=== PATIENT | male | born 1980 | race Two or more races ===

== ENCOUNTER 2018-07-04 22:59 | Outpatient (CLI) | payer OTHER | END 2018-07-04 23:00 | disposition home or self-care (01) | LOC: LAB 22:59 | PROVIDERS: ATTEND Pathology Blood Banking & Transfusion Medicine | DX: Z01.89 Encounter for other specified special examinations (principal) | CPT/HCPCS: 36415 ==

== ENCOUNTER 2023-04-02 10:24 | Outpatient (CLI) | payer SELFPAY | END 2023-04-02 10:25 | disposition critical access hospital (66) | LOC: EMS 10:24 | DX: R10.9 Unspecified abdominal pain (principal) | CPT/HCPCS: A0425; A0429 ==

== ENCOUNTER 2023-04-02 11:09 | Observation (INO) | payer SELFPAY ==
[2023-04-02] MEDS ORDERED: SODIUM CHLORIDE 0.9% 1,000 ML IV STA (11:41)
[2023-04-02] MEDS ORDERED: ONDANSETRON 4 MG/2 ML VIAL IVP STA ×2 (11:41→13:14)
[2023-04-02] MEDS ORDERED: THIAMINE INJ 100 MG, FOLIC ACID INJ 1 MG in SODIUM CHLORIDE 0.9% 1,000 ML IV STA (11:42)
[2023-04-02] MEDS ORDERED: PANTOPRAZOLE 40 MG VIAL IVP STA (11:42)
[2023-04-02 11:58] LABS: BASOPHILS # (AUTO) 0.1 10^3/uL (0.0-0.1); BASOPHILS % (AUTO) 1.4 %; EOSINOPHILS % (AUTO) 0.3 %; HCT - HEMATOCRIT 29.6 % (42.0-52.0); HGB - HEMOGLOBIN 8.7 g/dL (14.0-18.0); LYMPHOCYTES # (AUTO) 1.4 10^3/uL (1.5-3.5); LYMPHOCYTES % (AUTO) 17.6 %; MEAN CORPUSCULAR HEMOGLOBIN 18.8 pg (27.0-31.0); MEAN CORPUSCULAR HGB CONC 29.4 g/dL (32.0-36.0); MEAN CORPUSCULAR VOLUME 64.1 fL (80.0-94.0); MEAN PLATELET VOLUME 9.3 fL (7.4-11.4); MONOCYTES % (AUTO) 13.1 %; NEUTROPHILS # (AUTO) 5.3 10^3/uL (1.5-6.6); NRBC ABSOLUTE COUNT (AUTO) 0.02 x10^3/uL; NUCLEATED RED BLOOD CELLS AUTO 0.3 /100WBC; PLT - PLATELET COUNT 277 10^3/uL (130-450); RED BLOOD COUNT 4.62 10^6/uL (4.70-6.10); RED CELL DISTRIBUTION WIDTH 21.1 % (12.0-15.0); WHITE BLOOD COUNT 7.9 x10^3/uL (4.8-10.8)
[2023-04-02 12:00] LABS: RBC MORPHOLOGY (MULTIPLE) 4+ ANISOCYTOSIS (NORMAL); SLIDE REVIEW? Indicated
--- NOTE | 2023-04-02 12:05 | ED Physician Documentation ---
History of Present Illness - Stated complaint Stated Complaint: ETOH, vomiting BRB - Chief complaint Chief Complaint: Abd Pain - Additonal information Additional information: 43-year-old male who is Martiniquais-speaking only presents to the emergency department for evaluation of abdominal pain, hematic emesis and alcohol abuse. He is requesting help to stop drinking. Patient reports that he has been binge drinking each night in order to sleep. If he does not drink he is unable to sleep. He does have a longstanding history of insomnia and depression. Reports some bright red bloody emesis. History is exceedingly difficult to obtain, even with the lathe set up person. Patient often does not answer questions as anticipated and thus not a reliable historian. Reports drinking prior to arrival but cannot quantify the time or amount. Patient denied black or bloody stools but did have a difficult time answering this question. I also tried to elicit any history of withdrawal or DTs and again the answer was not clear. Patient did present to the emergency department with an emesis bag that had bright red blood but small volume/quantity perhaps large "loogies." On presentation to the emergency department he is alert and well-appearing. He prefers to lay in the position on the right side. He is noted to be tachycardic sinus rhythm heart rate of 116. Blood pressure 137/71. Temperature is 37. No respiratory distress or hypoxia. Fitness Plan Coordinator used was #[id number]. Review of Systems Unable to obtain: Intoxicated, Other (language barrier) PD PAST MEDICAL HISTORY - Past Medical History Past Medical History: No Cardiovascular: None Endocrine/Autoimmune: None Psych: Depression, Anxiety Other Past Medical History: ETOH abuse, insomnia - Past Surgical History Past Surgical History: No - Present Medications Home Medications: Ambulatory Orders Medication Instructions Recorded Confirmed Hydrocodone/Acetaminophen [[place] 1 each PO Q6H PRN #25 tablet 02/10/16 5-325 Tablet] Ibuprofen [Motrin] 600 mg PO TID #30 tab 02/10/16 methocarbamoL [Robaxin] 500 mg PO Q6H PRN #30 tablet 02/10/16 - Allergies Allergies/Adverse Reactions: Allergies Allergy/AdvReac Type Severity Reaction Status Date / Time aspirin [From [place]] Allergy Rash Verified 04/02/23 11:20 citric acid Allergy Rash Verified 04/02/23 11:20 [From [place]] sodium bicarbonate Allergy Rash Verified 04/02/23 11:20 [From [place]] - Social History Does the pt smoke?: Yes Smoking Status: Current every day smoker Does the pt drink ETOH?: Yes Does the pt have substance abuse?: No PD ED PE NORMAL - General General: Alert and oriented X 3, No acute distress, Well developed/nourished - HEENT HEENT: Atraumatic - Neck Neck: Supple, no meningeal sign - Cardiac Cardiac: RRR (Sinus tachycardia on the monitor), No murmur, Strong equal pulses - Respiratory Respiratory: No respiratory distress, Clear bilaterally - Abdomen Abdomen: Normal bowel sounds, Soft, Non tender (I did not elicit any abdominal tenderness with exam.) - Rectal Rectal: Other (Chaperoned rectal exam revealed brown stool in vault. 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 2-12 intact Eye Opening: Spontaneous Motor: Obeys Commands Verbal: Oriented GCS Score: 15 Results - Vitals Vitals: Vital Signs - 24 hr 04/02/23 04/02/23 11:13 12:31 Temperature 37.0 C Heart Rate 116 H 110 H Respiratory 20 18 Rate Blood Pressure 137/71 H 139/61 H O2 Saturation 97 98 Oxygen O2 Source Room air - Labs Labs: Microbiology 04/02/23 12:14 Occult Blood - Final Stool Laboratory Tests 04/02/23 04/02/23 04/02/23 11:48 11:48 11:48 WBC 7.9 RBC 4.62 L Hgb 8.7 L Hct 29.6 L MCV 64.1 L MCH 18.8 L MCHC 29.4 L RDW 21.1 H Plt Count 277 MPV 9.3 Neut # (Auto) 5.3 Lymph # (Auto) 1.4 L [place] # (Auto) 1.0 Eos # (Auto) 0.0 Baso # (Auto) 0.1 Absolute Nucleated RBC 0.02 Nucleated RBC % 0.3 Manual Slide Review Indicated RBC Morph Micro Appear 4+ ANISOCYTOSIS PT INR Sodium 133 L Potassium 3.1 L Chloride 96 L Carbon Dioxide 22 Anion Gap 15.0 H BUN 5 L Creatinine 0.6 Estimated GFR (MDRD) 146 Glucose 182 H Calcium 8.9 Total Bilirubin 0.4 AST 142 H ALT 94 H Alkaline Phosphatase 139 H Ammonia Total Protein 8.0 Albumin 4.4 Globulin 3.6 Albumin/Globulin Ratio 1.2 Lipase 92 H Ethyl Alcohol 291.8 Blood Type O POSITIVE Antibody Screen NEGATIVE 04/02/23 04/02/23 11:48 11:56 WBC RBC Hgb Hct MCV MCH MCHC RDW Plt Count MPV Neut # (Auto) Lymph # (Auto) [place] # (Auto) Eos # (Auto) Baso # (Auto) Absolute Nucleated RBC Nucleated RBC % Manual Slide Review RBC Morph Micro Appear PT 11.7 INR 1.1 Sodium Potassium Chloride Carbon Dioxide Anion Gap BUN Creatinine Estimated GFR (MDRD) Glucose Calcium Total Bilirubin AST ALT Alkaline Phosphatase Ammonia 40.4 Total Protein Albumin Globulin Albumin/Globulin Ratio Lipase Ethyl Alcohol Blood Type Antibody Screen PD Medical Decision Making - ED course Complexity details: reviewed results, re-evaluated patient, d/w patient ED course: 43-year-old male who is Martiniquais-speaking only presents to the emergency department for evaluation of binge drinking and vomiting bright red blood. History was difficult to obtain secondary to language barrier as well as difficulty for the patient with the utility sales representative services. However patient reports that for about the last week he has been binge drinking. If he does not drink he is unable to sleep. He started having vomiting of bright red blood this morning. It does not sound as though he has had melena or hematochezia. Takes no prescribed medications. On presentation to the emergency department he was tachycardic with a heart rate of 116 but normotensive. No fevers. No abdominal pain was elicited. I did do a rectal exam which revealed brown blood in the vault however it was guaiac positive. I obtained initial CBC, PT/INR serum chemistry and an ammonia level. His blood alcohol level was 291. He does have a marked anemia with an initial hemoglobin of 8.7. Normal platelet count. No previous for comparison. INR was 1.1. He has some mild electrolyte derangement with sodium of 133 and a K of 3.1. I did give the patient a 40 meq dose of potassium orally. Anion gap is 15. Normal renal function. He does have transaminitis consistent with alcoholic hepatitis; AST 142 ALT 94. Alk phos is 139. Ammonia was not elevated. Bilirubin was normal. He had a lipase of 92. This is likely related to alcohol abuse. On exam no abdominal tenderness was elicited, therefore advanced imaging was deferred However given the marked anemia and reports of bright red blood there is concern for this gentleman to have an active upper GI bleed. I did administer the patient 1 L of normal saline as well as a liter of thiamine/folate given history of alcohol abuse. He also received Protonix IV. I briefly spoke on the phone with Dr. Finley the surgeon available and on-call. She agrees that the patient needs endoscopy and scoping. Subsequently I then spoke with the hospitalist Dr. Oakley who agrees to admit the patient. The patient does have a MELD score of 1.7. Giving him a low 2% risk of 3-month mortality. With IV fluids his heart rate is improved to 109. He remains normotensive. He was empirically given a single dose of phenobarbital for the riskof ETOH withdrawl though he presented with blood alcohol of 290. Patient had an initial CIWA score of 19 at 1300. He had previously been administered 30mg of phenobarbital. We will now administer 2 mg of Ativan. While admitted to the hospital the patient will need to be seen by social work for evaluation of alcohol abuse. He may benefit from detox or rehab following the hospitalization. I spoke with the patient using utility sales representative services #[id number] and the patient agrees to become inpatient for further evaluation and management of his alcohol abuse and upper GI bleeding. Departure - Departure Disposition: 66 [facility] DC/Xfer Clinical Impression: Upper GI bleeding, ETOH abuse, Abnormal LFTs (liver function tests) Anemia Qualifiers: Anemia type: unspecified type Qualified Code(s): D64.9 - Anemia, unspecified Forms: PCP List
[2023-04-02 12:13] LABS: INR 1.1 (0.8-1.2); PT - PROTHROMBIN TIME 11.7 secs (9.9-12.6)
[2023-04-02 12:17] LABS: ALBUMIN 4.4 g/dL (3.2-5.5); ALBUMIN/GLOBULIN RATIO 1.2 (1.0-2.2); BILIRUBIN,TOTAL 0.4 mg/dL (0.2-1.0); CALCIUM 8.9 mg/dL (8.5-10.3); CREATININE 0.6 mg/dL (0.6-1.3); ETOH - ETHANOL 291.8 mg/dL; POTASSIUM 3.1 mmol/L (3.5-4.5)
[2023-04-02] MEDS ORDERED: PHENobarbitaL 32.4 MG TABLET PO STA (12:36)
[2023-04-02] MEDS ORDERED: POTASSIUM CHLORIDE 20 MEQ TABLET PO STA (13:15)
[2023-04-02] MEDS ORDERED: LORazepam 2 MG/ML VIAL IVP STA (13:15)
--- NOTE | 2023-04-02 13:21 | CONSULTATION NOTE ---
Referring Provider Name of Referring Provider:: ED (Mane Duckworth) Consult Date: 04/02/23 Chief Complaint - Chief Complaint Chief Complaint: bloody sputum, possible hematemesis, anemia History of Present Illness - Admitted From Admitted From:: ED - History Obtained From Records Reviewed: yes (though limited) History obtained from: patient, chart, ED provider Exam Limitations: patient actively intoxicated, Polish speaking - History of Present Illness HPI Comment/Other: I spoke with the patient this afternoon with the assistance of a video farm laborer, #[id number]. The patient is resting comfortably, and awakens to voice. He does not answer questions appropriately. He states he has a little pain "all over" his abdomen. He denies nausea at this time. He states he has been vomiting blood. When asked how long this has been occurring, he says "for 9 months because I cannot sleep." When asked if he's been having bloody vomit or drinking alcohol for 9 months, he does not answer. When asked who the president is he does not answer. When asked what year it is, he states he is 44 years old. When asked what day it is he states it is Friday (it's Friday). The patient falls asleep frequently between questions and does appear intoxicated at the time of my interview. History - Past Medical History Cardiovascular: reports: None (unknown, patient unable to participate in questioning at this time) Endocrine/Autoimmune: reports: None Psych: reports: Depression, Anxiety Other Past Medical History: ETOH abuse, insomnia - Past Surgical History General: reports: Other (unable to obtain information due to intoxication) - Substance History Use: Uses substance without health or social issues: Alcohol Use Issues: Intoxication Meds/Allgy - Home Medications Home Medications: Ambulatory Orders Medication Instructions Recorded Confirmed Hydrocodone/Acetaminophen [[place] 1 each PO Q6H PRN #25 tablet 02/10/16 5-325 Tablet] Ibuprofen [Motrin] 600 mg PO TID #30 tab 02/10/16 methocarbamoL [Robaxin] 500 mg PO Q6H PRN #30 tablet 02/10/16 - Allergies Allergies/Adverse Reactions: Allergies Allergy/AdvReac Type Severity Reaction Status Date / Time aspirin [From [place]] Allergy Rash Verified 04/02/23 11:20 citric acid Allergy Rash Verified 04/02/23 11:20 [From [place]ime] sodium bicarbonate Allergy Rash Verified 04/02/23 11:20 [From [place]] Review of Systems - Constitutional Constitutional: reports: Other (unable to obtain due to intoxication) Exam - Vital Signs Reviewed Vital Signs: Yes Vital Signs: Vital Signs x48h Temp Pulse Resp BP Pulse Ox 04/02/23 12:31 110 H 18 139/61 H 98 04/02/23 11:13 37.0 C 116 H 20 137/71 H 97 - Physical Exam General Appearance: positive: Lethargic, Other (intoxicated) Eyes Bilateral: positive: PERRL, EOMI, No scleral icterus ENT: positive: No signs of dehydration Neck: positive: Trachea midline Respiratory: positive: No respiratory distress Cardiovascular: positive: Tachycardia Peripheral Pulses: positive: 2+ Abdomen: positive: Tenderness (mild, diffuse). negative: Guarding, Rebound Back: positive: Nml inspection Skin: positive: No rash Extremities: positive: Non-tender Neurologic/Psychiatric: positive: Other (confused/intoxicated) Conclusion and Plan - Lab Results Microbiology Results 04/02/23 12:14 Stool Occult Blood - Final Laboratory Results 04/02/23 11:56: Ammonia 40.4 04/02/23 11:48: PT 11.7, INR 1.1 04/02/23 11:48: Blood Type O POSITIVE, Antibody Screen NEGATIVE 04/02/23 11:48: Sodium 133 L, Potassium 3.1 L, Chloride 96 L, Carbon Dioxide 22, Anion Gap 15.0 H, BUN 5 L, Creatinine 0.6, Estimated GFR (MDRD) 146, Glucose 182 H, Calcium 8.9, Total Bilirubin 0.4, AST 142 H, ALT 94 H, Alkaline Phosphatase 139 H, Total Protein 8.0, Albumin 4.4, Globulin 3.6, Albumin/Globulin Ratio 1.2, Lipase 92 H, Ethyl Alcohol 291.8 04/02/23 11:48: WBC 7.9, RBC 4.62 L, Hgb 8.7 L, Hct 29.6 L, MCV 64.1 L, MCH 18.8 L, MCHC 29.4 L, RDW 21.1 H, Plt Count 277, MPV 9.3, Neut # (Auto) 5.3, Lymph # (Auto) 1.4 L, [place] # (Auto) 1.0, Eos # (Auto) 0.0, Baso # (Auto) 0.1, Absolute Nucleated RBC 0.02, Nucleated RBC % 0.3, Manual Slide Review Indicated, RBC Morph Micro Appear 4+ ANISOCYTOSIS - Consultation Note Consultation Note: This is a 43 y/o M with: acute alcohol intoxication and suspected alcohol use disorder - patient is currently intoxicated - states he's been drinking heavily for 9 months because he cannot sleep - as per primary team possible hematemesis, anemia, guiac positive stool - guiac + stool in ED - bloody sputum in emesis bag on arrival per ED provider - patient is anemic - possible upper GI source for anemia (multiple risk factors in chart including alcohol use disorder, NSAID use, epigastric abdominal pain, and above) - I would consider upper endoscopy while inpatient. No prior labs or imaging are available to rule in/out possible varices. Patient will need to be lucid and not confused such that the surgery team can have a discussion regarding his history and to obtain consent for any indicated procedure. -The patient is mildly tachycardic and hypertensive. Likely due to intoxication/withdrawal. - No emesis since arrival. He does not appear to be in extremis due to his anemia at this time. Will follow hgb to assess for active bleeding. If hgb drops rapidly, would consider emergent endoscopy which would be high risk in an actively intoxicated/withdrawing patient, and would likely require endotracheal intubation for airway protection. - Records indicate the patient takes IBU at home. I would recommend stopping all NSAID medications with the spectre of upper gi bleeding. I would recommend tobacco and alcohol cessation. I would recommend PPI (IV or PO) daily. - Please keep patient NPO until we are able to assess patient further Plan to reassess patient in AM to obtain further history and assess for possible endoscopy. Thank you for consulting the surgery service in the care of this patient. We will continue to follow closely.
[2023-04-02] MEDS ORDERED: ONDANSETRON 4 MG/2 ML VIAL IVP PRN (13:57)
[2023-04-02] MEDS ORDERED: PROCHLORPERAZINE 10 MG/2 ML VIAL IVP PRN (13:57)
[2023-04-02] MEDS ORDERED: SODIUM CHLORIDE FLUSH 0.9% 10 ML SYRINGE IVP PRN (13:57)
[2023-04-02] MEDS ORDERED: SODIUM CHLORIDE 0.9% 1,000 ML IV SCH (14:00)
[2023-04-02 14:10] LABS: BILIRUBIN,URINE NEGATIVE (NEGATIVE); GLUCOSE, URINE (UA) NEGATIVE (NEGATIVE); KETONES,URINE (UA) NEGATIVE (NEGATIVE); LEUKOCYTE ESTERASE, URINE NEGATIVE (NEGATIVE); NITRITE,URINE NEGATIVE (NEGATIVE); OCCULT BLOOD,URINE TRACE-LYSE (NEGATIVE); PROTEIN,URINE NEGATIVE (NEGATIVE); UROBILINOGEN,URINE 0.2 (NORMAL) E.U./dL (NORMAL)
[2023-04-02 14:15] LABS: CLARITY,URINE CLEAR (CLEAR)
[2023-04-02] MEDS ORDERED: LORazepam 2 MG/ML VIAL IVP PRN (14:19)
[2023-04-02 15:15] LABS: ALBUMIN 4.3 g/dL (3.2-5.5); ALBUMIN/GLOBULIN RATIO 1.3 (1.0-2.2); BILIRUBIN,TOTAL 0.5 mg/dL (0.2-1.0); CALCIUM 8.3 mg/dL (8.5-10.3); CREATININE 0.5 mg/dL (0.6-1.3); POTASSIUM 3.4 mmol/L (3.5-4.5); TOTAL PROTEIN 7.7 g/dL (6.4-8.9)
[2023-04-02] MEDS: LORazepam 2 MG/ML VIAL IVP PRN ×2 (15:39→20:45)
[2023-04-02] MEDS: SODIUM CHLORIDE FLUSH 0.9% 10 ML SYRINGE IVP SCH (16:15)
--- NOTE | 2023-04-02 16:32 | HISTORY & PHYSICAL EXAMINATION ---
Chief Complaint - Chief Complaint Chief Complaint: Poss vomiting of bright red blood, alcohol abuse and wanting help to stop History of Present Illness - Admitted From Admitted From:: ED - History Obtained From History obtained from: ED provider and Gen Surgeon - History of Present Illness HPI Comment/Other: This is a 43-year-old male who speaks only Chinese. He has a history of alcohol use. In one of his answers to the general surgeon he implied that he has been drinking alcohol heavily for 9 months. He describes that over the past 5 to 7 days he has been binging alcohol in order to sleep otherwise has insomnia. He came to the ER requesting help to stop drinking and was noted to have bright red sputum or red clots in his emesis bag. The patient also was intoxicated with a serum alcohol level of 291. In the ED, his exam showed that he was tremulous alternating with confused and sleepy. He had no abdominal distention and no abdominal pain. His rectal exam showed brown, guaiac positive stool. Labs were remarkable for hemoglobin 8.7, low MCV, platelet count and INR normal. AST 142, ALT 94. Bilirubin normal, alk phos elevated. Lipase 92. [place]od[place] m 133, potassium 3.1. Normal BUN/creatinine. Blood pressure 137/71, heart rate sinus tach at 116. Patient was given a dose of IV phenobarb for possibly going into DTs. The ER provider spoke to the general surgeon who agreed he needed upper endoscopy, however since he is intoxicated he cannot give consent to have an EGD done today. The ED provider then spoke to me about this patient. He will be placed in Observation on the Hospitalist service to manage possible upper GI bleed, anemia with heme positive stool, alcohol intoxication with possible alcohol withdrawal. History - Past Medical History Cardiovascular: reports: None Endocrine/Autoimmune: reports: None Psych: reports: Depression, Anxiety Other Past Medical History: ETOH abuse, insomnia - Family & Social History Family History Comment/Other: Cannot get detials, pt is intoxicated Social History Notes: Amount of alcohol intake unknown, he did tell the surgeon he has been "drinking for 9 mos". Unknown details but he does smoke cigarettes. Unknown drug history. Unknown details about where he lives. Meds/Allgy - Home Medications Home Medications: Ambulatory Orders Medication Instructions Recorded Confirmed Hydrocodone/Acetaminophen [[place] 1 each PO Q6H PRN #25 tablet 02/10/16 5-325 Tablet] Ibuprofen [Motrin] 600 mg PO TID #30 tab 02/10/16 methocarbamoL [Robaxin] 500 mg PO Q6H PRN #30 tablet 02/10/16 - Allergies Allergies/Adverse Reactions: Allergies Allergy/AdvReac Type Severity Reaction Status Date / Time aspirin [From [place]] Allergy Rash Verified 04/02/23 11:20 citric acid Allergy Rash Verified 04/02/23 11:20 [From [place]] sodium bicarbonate Allergy Rash Verified 04/02/23 11:20 [From [place]] Review of Systems - All Other Systems All Other Systems: reports: Other (Unable to obtain since he is somnolent and intoxicated, Even using triple border, he is not answering questions coherently) Exam - Vital Signs Reviewed Vital Signs: Yes Vital Signs: Vital Signs x48h Temp Pulse Resp BP Pulse Ox 04/02/23 12:31 110 H 18 139/61 H 98 04/02/23 11:13 37.0 C 116 H 20 137/71 H 97 - Physical Exam General Appearance: positive: Lethargic (Awakens to name and to touch, adjust his position in bed and falls back asleep) Eyes Bilateral: positive: Normal inspection, EOMI ENT: positive: ENT inspection nml, Dry mucous membranes Neck: positive: Nml inspection, No JVD Respiratory: positive: No respiratory distress, Breath sounds nml Cardiovascular: positive: Regular rate & rhythm, No murmur Abdomen: positive: Non-tender, No distention Skin: positive: Warm, Dry Extremities: positive: Non-tender, No pedal edema Neurologic/Psychiatric: positive: Other (Lethargic, possibly disoriented but he awakens to name and to touch, moving all extremities spontaneously) Conclusion/Plan - Problem List (1) Upper GI bleeding Conclusion/Plan: There is a red globular substance in his emesis bag. It is unclear if someone witnessed him vomiting or if this is sputum or nasal secretions Being a heavy alcohol drinker, he does have risk for having varices or gastritis or an ulcer, all of which could be bleeding Plan: Place the patient in observation, in ICU Begin IV Protonix twice daily empirically General surgery is planning an EGD, he cannot give consent currently because he is intoxicated. Monitor for hematemesis The general surgeon wants him kept n.p.o. I will allow ice chips only (2) Anemia Conclusion/Plan: His admission hemoglobin is 8.7. We presume he has an upper GI bleed that is acute. 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 Plan: Follow his hemoglobin every 12 hours. Transfuse if hemoglobin is under 7 EGD is planned, as above We will also check his B12, folate levels and iron stores and plan to replace if low Qualifiers: Anemia type: unspecified type Qualified Code(s): D64.9 - Anemia, unspecified (3) ETOH abuse Conclusion/Plan: We have no details about his duration of alcohol abuse or what he drinks or what amount. He does have elevated AST greater than ALT but has normal INR and platelets and bilirubin. Currently he is intoxicated but we would expect he could go through alcohol withdrawal. His first CIWA score is 19. Plan: Place the patient in the ICU because of the high CIWA score Continue with CIWA scoring and IV Ativan high-dose ICU protocol We will order banana bag for IV fluids - Lab Results Fish Bones: 04/03/23 04:17 04/03/23 04:17
[2023-04-02] MEDS: MULTIVITAMIN 10 ML, THIAMINE INJ 100 MG, FOLIC ACID INJ 1 MG in SODIUM CHLORIDE 0.9% 1,... IV SCH (18:39)
[2023-04-03] MEDS: SODIUM CHLORIDE FLUSH 0.9% 10 ML SYRINGE IVP SCH ×4 (01:37→20:53)
[2023-04-03 05:07] LABS: MEAN CORPUSCULAR HEMOGLOBIN 18.5 pg (27.0-31.0); MEAN CORPUSCULAR HGB CONC 28.6 g/dL (32.0-36.0); MEAN CORPUSCULAR VOLUME 64.8 fL (80.0-94.0); MEAN PLATELET VOLUME 9.5 fL (7.4-11.4); RED BLOOD COUNT 4.32 10^6/uL (4.70-6.10); RED CELL DISTRIBUTION WIDTH 20.7 % (12.0-15.0)
[2023-04-03 05:24] LABS: ALBUMIN 4.2 g/dL (3.2-5.5); ALBUMIN/GLOBULIN RATIO 1.2 (1.0-2.2); BILIRUBIN,TOTAL 1.2 mg/dL (0.2-1.0); CALCIUM 9.2 mg/dL (8.5-10.3); CREATININE 0.5 mg/dL (0.6-1.3); MAGNESIUM 1.5 mg/dL (1.7-2.3); PHOSPHORUS 2.8 mg/dL (2.5-5.0); POTASSIUM 3.7 mmol/L (3.5-4.5); TOTAL PROTEIN 7.6 g/dL (6.4-8.9)
[2023-04-03] MEDS ORDERED: MAGNESIUM OXIDE 400 MG TABLET PO ONE (07:38)
[2023-04-03] MEDS: MULTIVITAMIN 10 ML, THIAMINE INJ 100 MG, FOLIC ACID INJ 1 MG in SODIUM CHLORIDE 0.9% 1,... IV SCH (08:49)
[2023-04-03] MEDS ORDERED: NICOTINE 14 MG PATCH TOP SCH (09:00)
[2023-04-03] MEDS ORDERED: POTASSIUM CHLORIDE 20 MEQ TABLET PO ONE ×3 (09:00→20:54)
[2023-04-03] MEDS ORDERED: MULTIVITAMIN 10 ML, THIAMINE INJ 100 MG, FOLIC ACID INJ 1 MG in SODIUM CHLORIDE 0.9% 1,... IV SCH (09:00)
[2023-04-03] MEDS ORDERED: MAGNESIUM SULFATE 2 GRAM 2 GM/50 ML BAG IV ONE (09:39)
[2023-04-03] MEDS: POTASSIUM CHLOR 10 MEQ/100 ML 10 MEQ/100 ML BAG IV SCH ×2 (11:24→12:40)
--- NOTE | 2023-04-03 13:02 | PROVIDER PROGRESS NOTE ---
Subjective - Subjective Pt reports feeling: Improved (Awake, answering and communicating, not N/V, is hungry) Objective - Vital Signs/Intake & Output Reviewed Vital Signs: Yes Vital Signs: Vital Signs Temp Pulse Resp BP Pulse Ox 04/03/23 12:00 37.3 C 97 38 H 139/86 H 98 04/03/23 11:00 107 H 19 137/67 H 100 04/03/23 10:00 95 26 H 152/79 H 98 04/03/23 09:00 97 27 H 149/74 H 98 Intake & Output: Intake & Output 03/31/23 04/01/23 04/02/23 04/03/23 23:59 23:59 23:59 23:59 Intake Total 2001.2 2311.2 Output Total 1400 1570 Balance 601.2 741.2 - Objective General Appearance: positive: No acute distress, Lethargic Eyes Bilateral: positive: Normal inspection, No lid inflammation ENT: positive: No signs of dehydration Neck: positive: Nml inspection, No JVD Respiratory: positive: No respiratory distress, Breath sounds nml Cardiovascular: positive: Regular rate & rhythm, No murmur Abdomen: positive: Non-tender, No distention Skin: positive: Warm, Dry Extremities: positive: Non-tender, No pedal edema Neurologic/Psychiatric: positive: Oriented x3 (when awake, mostly napping) - Lab Results Fish Bones: 04/03/23 14:02 04/03/23 19:24 Other Labs: Lab Results x24hrs 04/03/23 04/03/23 04/03/23 Range/Units 04:17 04:17 04:17 WBC 8.0 (4.8-10.8) x10^3/uL RBC 4.32 L (4.70-6.10) 10^6/uL Hgb 8.0 L (14.0-18.0) g/dL Hct 28.0 L (42.0-52.0) % MCV 64.8 L (80.0-94.0) fL MCH 18.5 L (27.0-31.0) pg MCHC 28.6 L (32.0-36.0) g/dL RDW 20.7 H (12.0-15.0) % Plt Count 235 (130-450) 10^3/uL MPV 9.5 (7.4-11.4) fL Sodium 131 L (135-145) mmol/L Potassium 3.7 (3.5-4.5) mmol/L Chloride 98 L (101-111) mmol/L Carbon Dioxide 24 (21-32) mmol/L Anion Gap 9.0 (6-13) BUN 4 L (6-20) mg/dL Creatinine 0.5 L (0.6-1.3) mg/dL Estimated GFR (MDRD) 180 (>89) Glucose 112 H (74-104) mg/dL Calcium 9.2 (8.5-10.3) mg/dL Phosphorus 2.8 (2.5-5.0) mg/dL Magnesium 1.5 L (1.7-2.3) mg/dL Total Bilirubin 1.2 H (0.2-1.0) mg/dL AST 95 H (10-42) IU/L ALT 73 H (10-60) IU/L Alkaline Phosphatase 126 H (42-121) IU/L Total Protein 7.6 (6.4-8.9) g/dL Albumin 4.2 (3.2-5.5) g/dL Globulin 3.4 (2.1-4.2) g/dL Albumin/Globulin Ratio 1.2 (1.0-2.2) Lipase 87 H (11-82) U/L Urine Color Urine Clarity (CLEAR) Urine pH (5.0-7.5) PH Ur Specific [place] (1.002-1.030) Urine Protein (NEGATIVE) mg/dL Urine Glucose (UA) (NEGATIVE) mg/dL Urine Ketones (NEGATIVE) mg/dL Urine Occult Blood (NEGATIVE) Urine Nitrite (NEGATIVE) Urine Bilirubin (NEGATIVE) Urine Urobilinogen (NORMAL) E.U./dL Ur Leukocyte Esterase (NEGATIVE) Ur Microscopic Review Urine Culture Comments Nasal Screen MRSA (PCR) (NEGATIVE) Blood Type Recheck 04/02/23 04/02/23 04/02/23 Range/Units 19:30 16:08 14:42 WBC (4.8-10.8) x10^3/uL RBC (4.70-6.10) 10^6/uL Hgb 8.3 L (14.0-18.0) g/dL Hct (42.0-52.0) % MCV (80.0-94.0) fL MCH (27.0-31.0) pg MCHC (32.0-36.0) g/dL RDW (12.0-15.0) % Plt Count (130-450) 10^3/uL MPV (7.4-11.4) fL Sodium 135 (135-145) mmol/L Potassium 3.4 L (3.5-4.5) mmol/L Chloride 99 L (101-111) mmol/L Carbon Dioxide 24 (21-32) mmol/L Anion Gap 12.0 (6-13) BUN 4 L (6-20) mg/dL Creatinine 0.5 L (0.6-1.3) mg/dL Estimated GFR (MDRD) 180 (>89) Glucose 102 (74-104) mg/dL Calcium 8.3 L (8.5-10.3) mg/dL Phosphorus (2.5-5.0) mg/dL Magnesium (1.7-2.3) mg/dL Total Bilirubin 0.5 (0.2-1.0) mg/dL AST 130 H (10-42) IU/L ALT 87 H (10-60) IU/L Alkaline Phosphatase 129 H (42-121) IU/L Total Protein 7.7 (6.4-8.9) g/dL Albumin 4.3 (3.2-5.5) g/dL Globulin 3.4 (2.1-4.2) g/dL Albumin/Globulin Ratio 1.3 (1.0-2.2) Lipase (11-82) U/L Urine Color Urine Clarity (CLEAR) Urine pH (5.0-7.5) PH Ur Specific [place] (1.002-1.030) Urine Protein (NEGATIVE) mg/dL Urine Glucose (UA) (NEGATIVE) mg/dL Urine Ketones (NEGATIVE) mg/dL Urine Occult Blood (NEGATIVE) Urine Nitrite (NEGATIVE) Urine Bilirubin (NEGATIVE) Urine Urobilinogen (NORMAL) E.U./dL Ur Leukocyte Esterase (NEGATIVE) Ur Microscopic Review Urine Culture Comments Nasal Screen MRSA (PCR) NEGATIVE (NEGATIVE) Blood Type Recheck 04/02/23 04/02/23 Range/Units 13:34 13:04 WBC (4.8-10.8) x10^3/uL RBC (4.70-6.10) 10^6/uL Hgb (14.0-18.0) g/dL Hct (42.0-52.0) % MCV (80.0-94.0) fL MCH (27.0-31.0) pg MCHC (32.0-36.0) g/dL RDW (12.0-15.0) % Plt Count (130-450) 10^3/uL MPV (7.4-11.4) fL Sodium (135-145) mmol/L Potassium (3.5-4.5) mmol/L Chloride (101-111) mmol/L Carbon Dioxide (21-32) mmol/L Anion Gap (6-13) BUN (6-20) mg/dL Creatinine (0.6-1.3) mg/dL Estimated GFR (MDRD) (>89) Glucose (74-104) mg/dL Calcium (8.5-10.3) mg/dL Phosphorus (2.5-5.0) mg/dL Magnesium (1.7-2.3) mg/dL Total Bilirubin (0.2-1.0) mg/dL AST (10-42) IU/L ALT (10-60) IU/L Alkaline Phosphatase (42-121) IU/L Total Protein (6.4-8.9) g/dL Albumin (3.2-5.5) g/dL Globulin (2.1-4.2) g/dL Albumin/Globulin Ratio (1.0-2.2) Lipase (11-82) U/L Urine Color LIGHT YELLOW Urine Clarity CLEAR (CLEAR) Urine pH 7.0 (5.0-7.5) PH Ur Specific [place] 1.010 (1.002-1.030) Urine Protein NEGATIVE (NEGATIVE) mg/dL Urine Glucose (UA) NEGATIVE (NEGATIVE) mg/dL Urine Ketones NEGATIVE (NEGATIVE) mg/dL Urine Occult Blood TRACE-LYSE (NEGATIVE) Urine Nitrite NEGATIVE (NEGATIVE) Urine Bilirubin NEGATIVE (NEGATIVE) Urine Urobilinogen 0.2 (NORMAL) (NORMAL) E.U./dL Ur Leukocyte Esterase NEGATIVE (NEGATIVE) Ur Microscopic Review NOT INDICATED Urine Culture Comments NOT INDICATED Nasal Screen MRSA (PCR) (NEGATIVE) Blood Type Recheck O POSITIVE Assessment/Plan - Problem List (1) Upper GI bleeding Impression: There was a red globular substance in his emesis bag. It is unclear if someone witnessed him vomiting or if this is sputum or nasal secretions. Being a heavy alcohol drinker, he does have risk for bleeding varices or gastritis or an u lcer. No hematemasis since admitted. Plan: He could be moved out of ICU if necessary General surgery is planning an EGD, I spoke to today's surgeon Dr Ajit Rangel, who will plan to scope him tomorrow Advance his diet to clear liquids today Cont IV Protonix twice daily empirically (2) Anemia Conclusion/Plan: His admission hemoglobin is 8.7 and has decreased to 8 this morning, but he has been n iv fluids while NPO. We presume he has an upper GI bleed that is acute. 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 He does have elevated AST greater than ALT but has normal INR and platelets and bilirubin. He presented intoxicated but his first CIWA score was 19, thus he was placed in the ICU. Plan: He can be moved out of ICU when CIWA scores are below 20, currently scores are 12-14 Continue with CIWA scoring and IV Ativan high-dose ICU protocol We stop the banana bag after current bag (4) Insomnia Conclusion/Plan: Patient was seen by healthcare social worker today and using an staff interpreter to give tablet, he told them he has had insomnia for 9 months and that his alcohol intake is gone up over that time and especially over the last 5 days he has been binging. The alcohol intake was done in order to fall asleep. He is requesting management of insomnia Plan: I will prescribe Ambien starting tonight.
[2023-04-03 15:23] LABS: POTASSIUM 3.6 mmol/L (3.5-4.5)
[2023-04-03] MEDS: LORazepam 2 MG/ML VIAL IVP PRN (20:49)
[2023-04-03] MEDS ORDERED: ZOLPIDEM 5 MG TABLET PO PRN (22:14)
[2023-04-04 04:45] LABS: HCT - HEMATOCRIT 30.8 % (42.0-52.0); HGB - HEMOGLOBIN 8.6 g/dL (14.0-18.0); MEAN CORPUSCULAR HEMOGLOBIN 18.5 pg (27.0-31.0); MEAN CORPUSCULAR HGB CONC 27.9 g/dL (32.0-36.0); MEAN CORPUSCULAR VOLUME 66.1 fL (80.0-94.0); MEAN PLATELET VOLUME 9.4 fL (7.4-11.4); RED BLOOD COUNT 4.66 10^6/uL (4.70-6.10); RED CELL DISTRIBUTION WIDTH 21.4 % (12.0-15.0); WHITE BLOOD COUNT 4.6 x10^3/uL (4.8-10.8)
[2023-04-04 04:59] LABS: ALBUMIN 4.3 g/dL (3.2-5.5); ALBUMIN/GLOBULIN RATIO 1.2 (1.0-2.2); ALKALINE PHOSPHATASE 138 IU/L (42-121); ALT ALANINE AMINOTRANSFERASE 79 IU/L (10-60); AST ASPARTATE AMINOTRANSFERASE 103 IU/L (10-42); BILIRUBIN,TOTAL 1.2 mg/dL (0.2-1.0); BUN - BLOOD UREA NITROGEN 5 mg/dL (6-20); CALCIUM 9.6 mg/dL (8.5-10.3); CARBON DIOXIDE - CO2 24 mmol/L (21-32); CHLORIDE 102 mmol/L (101-111); CREATININE 0.6 mg/dL (0.6-1.3); ETOH - ETHANOL < 10.0 mg/dL; GFR - MDRD 146 (>89); GLUCOSE 105 mg/dL (74-104); MAGNESIUM 2.1 mg/dL (1.7-2.3); SODIUM 134 mmol/L (135-145)
[2023-04-04 05:17] LABS: CALCIUM, IONIZED 1.15 mmol/L (1.15-1.33); VBG PH 7.467 (7.31-7.41)
--- NOTE | 2023-04-04 09:16 | CONSULTATION NOTE ---
Chief Complaint - Chief Complaint Chief Complaint: Hematemesis with elevated blod alcohol level History of Present Illness - Admitted From Admitted From:: ED - History of Present Illness HPI Comment/Other: Pt was admitted to the ICU for alcohol withdrawal and has been treated with CIWA protocol. History - Past Medical History Cardiovascular: reports: None Endocrine/Autoimmune: reports: None Psych: reports: Depression, Anxiety MRSA Hx?: No Other Past Medical History: ETOH abuse, insomnia - Past Surgical History General: reports: Other - Family & Social History Family History Comment/Other: Cannot get detials, pt is intoxicated Social History Notes: Amount of alcohol intake unknown, he did tell the surgeon he has been "drinking for 9 mos". Unknown details but he does smoke cigarettes. Unknown drug history. Unknown details about where he lives. - Substance History Use: Uses substance without health or social issues: Alcohol Use Issues: Intoxication Meds/Allgy - Allergies Allergies/Adverse Reactions: Allergies Allergy/AdvReac Type Severity Reaction Status Date / Time aspirin [From [place]] Allergy Rash Verified 04/02/23 11:20 citric acid Allergy Rash Verified 04/02/23 11:20 [From [place]] sodium bicarbonate Allergy Rash Verified 04/02/23 11:20 [From [place]] Exam - Vital Signs Vital Signs: Vital Signs x48h Temp Pulse Resp BP Pulse Ox 04/04/23 08:00 36.9 C 114 H 27 H 121/75 100 04/04/23 07:00 75 21 117/63 99 04/04/23 06:00 85 24 118/76 98 04/04/23 05:00 93 23 111/85 H 100 04/04/23 04:00 36.9 C 87 23 113/65 99 04/04/23 03:00 114 H 26 H 126/73 100 04/04/23 02:00 83 23 125/80 98 04/04/23 01:00 84 26 H 121/68 99 - Physical Exam General Appearance: positive: No acute distress Eyes Bilateral: positive: Normal inspection, PERRL ENT: positive: ENT inspection nml, Pharynx nml, No signs of dehydration Respiratory: positive: Chest non-tender, No respiratory distress, Breath sounds nml Cardiovascular: positive: Regular rate & rhythm, No murmur, No gallop Abdomen: positive: Non-tender, No organomegaly, Nml bowel sounds, No distention Neurologic/Psychiatric: positive: Oriented x3, Mood/affect nml Conclusion and Plan - Lab Results Microbiology Results 04/02/23 12:14 Stool Occult Blood - Final Laboratory Results 04/04/23 04:23: VBG pH 7.467 H, Ionized Calcium 1.15 04/04/23 04:23: Ammonia 53.9 04/04/23 04:23: WBC 4.6 L, RBC 4.66 L, Hgb 8.6 L, Hct 30.8 L, MCV 66.1 L, MCH 18.5 L, MCHC 27.9 L, RDW 21.4 H, Plt Count 233, MPV 9.4 04/04/23 04:23: Sodium 134 L, Potassium 4.0, Chloride 102, Carbon Dioxide 24, Anion Gap 8.0, BUN 5 L, Creatinine 0.6, Estimated GFR (MDRD) 146, Glucose 105 H, Calcium 9.6, Phosphorus 3.0, Magnesium 2.1, Total Bilirubin 1.2 H, AST 103 H, ALT 79 H, Alkaline Phosphatase 138 H, Total Protein 8.0, Albumin 4.3, Globulin 3.7, Albumin/Globulin Ratio 1.2, Ethyl Alcohol < 10.0 04/04/23 04:22: Vitamin B12 384 04/03/23 19:24: Potassium 3.6 04/03/23 14:55: Potassium 3.6, Magnesium 2.0 04/03/23 14:02: Hgb 8.3 L 04/03/23 04:17: Lipase 87 H 04/03/23 04:17: WBC 8.0, RBC 4.32 L, Hgb 8.0 L, Hct 28.0 L, MCV 64.8 L, MCH 18.5 L, MCHC 28.6 L, RDW 20.7 H, Plt Count 235, MPV 9.5 04/03/23 04:17: Sodium 131 L, Potassium 3.7, Chloride 98 L, Carbon Dioxide 24, Anion Gap 9.0, BUN 4 L, Creatinine 0.5 L, Estimated GFR (MDRD) 180, Glucose 112 H, Calcium 9.2, Phosphorus 2.8, Magnesium 1.5 L, Total Bilirubin 1.2 H, AST 95 H, ALT 73 H, Alkaline Phosphatase 126 H, Total Protein 7.6, Albumin 4.2, Globulin 3.4, Albumin/Globulin Ratio 1.2 04/02/23 19:30: Nasal Screen MRSA (PCR) NEGATIVE 04/02/23 16:08: Hgb 8.3 L 04/02/23 14:42: Sodium 135, Potassium 3.4 L, Chloride 99 L, Carbon Dioxide 24, Anion Gap 12.0, BUN 4 L, Creatinine 0.5 L, Estimated GFR (MDRD) 180, Glucose 102, Calcium 8.3 L, Total Bilirubin 0.5, AST 130 H, ALT 87 H, Alkaline Phosphatase 129 H, Total Protein 7.7, Albumin 4.3, Globulin 3.4, Albumin/Globulin Ratio 1.3 04/02/23 13:34: Urine Color LIGHT YELLOW, Urine Clarity CLEAR, Urine pH 7.0, Ur Specific [place] 1.010, Urine Protein NEGATIVE, Urine Glucose (UA) NEGATIVE, Urine Ketones NEGATIVE, Urine Occult Blood TRACE-LYSE, Urine Nitrite NEGATIVE, Urine Bilirubin NEGATIVE, Urine Urobilinogen 0.2 (NORMAL), Ur Leukocyte Esterase NEGATIVE, Ur Microscopic Review NOT INDICATED, Urine Culture Comments NOT INDICATED 04/02/23 13:04: Blood Type Recheck O POSITIVE 04/02/23 11:56: Ammonia 40.4 04/02/23 11:48: PT 11.7, INR 1.1 04/02/23 11:48: Blood Type O POSITIVE, Antibody Screen NEGATIVE 04/02/23 11:48: Sodium 133 L, Potassium 3.1 L, Chloride 96 L, Carbon Dioxide 22, Anion Gap 15.0 H, BUN 5 L, Creatinine 0.6, Estimated GFR (MDRD) 146, Glucose 182 H, Calcium 8.9, Total Bilirubin 0.4, AST 142 H, ALT 94 H, Alkaline Phosphatase 139 H, Total Protein 8.0, Albumin 4.4, Globulin 3.6, Albumin/Globulin Ratio 1.2, Lipase 92 H, Ethyl Alcohol 291.8 04/02/23 11:48: WBC 7.9, RBC 4.62 L, Hgb 8.7 L, Hct 29.6 L, MCV 64.1 L, MCH 18.8 L, MCHC 29.4 L, RDW 21.1 H, Plt Count 277, MPV 9.3, Neut # (Auto) 5.3, Lymph # (Auto) 1.4 L, [place] # (Auto) 1.0, Eos # (Auto) 0.0, Baso # (Auto) 0.1, Absolute Nucleated RBC 0.02, Nucleated RBC % 0.3, Manual Slide Review Indicated, RBC Morph Micro Appear 4+ ANISOCYTOSIS - Diagnosis Diagnosis: Hematemisis with alcohol intoxication. - Plan Plan: Plan for EGD to evaluate if he has esophageal varicies or gastritis.
--- NOTE | 2023-04-04 10:39 | PHARMACY PROGRESS NOTE ---
- Best Possible Medication History Admit Date and Time: 04/02/23 8333 Processed by: Pharmacy Medication History completed: Yes Patient Interview: Completed Secondary Source(s): Pharmacy records As the person ultimately responsible for medication therapy, providers are able to order a medication from an existing home medication list in [facility] via the "Reconcile Routine" prior to Confirmation of that medication by director of sales support. Such practice is discouraged except when the physician, in their clinical judgment, deems that a medical need exists for a medication without regard to previous use.
--- NOTE | 2023-04-04 11:20 | ANESTHESIA ---
Pre-Anesthesia VS, & Labs - Diagnosis Diagnosis Hematemisis with alcohol intoxication. - Procedure EGD Vital Signs: Temp Pulse Resp BP Pulse Ox O2 Flow Rate 36.9 C 91 27 H 121/84 H 99 04/04/23 08:00 04/04/23 10:00 04/04/23 10:00 04/04/23 10:00 04/04/23 10:00 Height: 5 ft 3 in Weight (kg): 88.5 kg Body Mass Index: 34.5 BMI Classification: Obese - NPO >8 hours - Lab Results Current Lab Results: Laboratory Tests 04/04/23 04:23: VBG pH 7.467 H, Ionized Calcium 1.15 04/04/23 04:23: Ammonia 53.9 04/04/23 04:23: WBC 4.6 L, RBC 4.66 L, Hgb 8.6 L, Hct 30.8 L, MCV 66.1 L, MCH 18.5 L, MCHC 27.9 L, RDW 21.4 H, Plt Count 233, MPV 9.4 04/04/23 04:23: Sodium 134 L, Potassium 4.0, Chloride 102, Carbon Dioxide 24, Anion Gap 8.0, BUN 5 L, Creatinine 0.6, Estimated GFR (MDRD) 146, Glucose 105 H, Calcium 9.6, Phosphorus 3.0, Magnesium 2.1, Total Bilirubin 1.2 H, AST 103 H, ALT 79 H, Alkaline Phosphatase 138 H, Total Protein 8.0, Albumin 4.3, Globulin 3.7, Albumin/Globulin Ratio 1.2, Ethyl Alcohol < 10.0 04/04/23 04:22: Vitamin B12 384, Folate 25.5 04/03/23 19:24: Potassium 3.6 04/03/23 14:55: Potassium 3.6, Magnesium 2.0 04/03/23 14:02: Hgb 8.3 L 04/03/23 04:17: Lipase 87 H 04/03/23 04:17: WBC 8.0, RBC 4.32 L, Hgb 8.0 L, Hct 28.0 L, MCV 64.8 L, MCH 18.5 L, MCHC 28.6 L, RDW 20.7 H, Plt Count 235, MPV 9.5 04/03/23 04:17: Sodium 131 L, Potassium 3.7, Chloride 98 L, Carbon Dioxide 24, Anion Gap 9.0, BUN 4 L, Creatinine 0.5 L, Estimated GFR (MDRD) 180, Glucose 112 H, Calcium 9.2, Phosphorus 2.8, Magnesium 1.5 L, Total Bilirubin 1.2 H, AST 95 H , ALT 73 H, Alkaline Phosphatase 126 H, Total Protein 7.6, Albumin 4.2, Globulin 3.4, Albumin/Globulin Ratio 1.2 04/02/23 16:08: Hgb 8.3 L 04/02/23 14:42: Sodium 135, Potassium 3.4 L, Chloride 99 L, Carbon Dioxide 24, Anion Gap 12.0, BUN 4 L, Creatinine 0.5 L, Estimated GFR (MDRD) 180, Glucose 102, Calcium 8.3 L, Total Bilirubin 0.5, AST 130 H, ALT 87 H, Alkaline Phosphatase 129 H, Total Protein 7.7, Albumin 4.3, Globulin 3.4, A lbumin/Globulin Ratio 1.3 04/02/23 13:04: Blood Type Recheck O POSITIVE 04/02/23 11:56: Ammonia 40.4 04/02/23 11:48: PT 11.7, INR 1.1 04/02/23 11:48: Blood Type O POSITIVE, Antibody Screen NEGATIVE 04/02/23 11:48: Sodium 133 L, Potassium 3.1 L, Chloride 96 L, Carbon Dioxide 22, Anion Gap 15.0 H, BUN 5 L, Creatinine 0.6, Estimated GFR (MDRD) 146, Glucose 182 H, Calcium 8.9, Total Bilirubin 0.4, AST 142 H, ALT 94 H, Alkaline Phosphatase 139 H, Total Protein 8.0, Albumin 4.4, Globulin 3.6, Albumin/Globulin Ratio 1.2, Lipase 92 H, Ethyl Alcohol 291.8 04/02/23 11:48: WBC 7.9, RBC 4.62 L, Hgb 8.7 L, Hct 29.6 L, MCV 64.1 L, MCH 18.8 L, MCHC 29.4 L, RDW 21.1 H, Plt Count 277, MPV 9.3, Neut # (Auto) 5.3, Lymph # (Auto) 1.4 L, [place] # (Auto) 1.0, Eos # (Auto) 0.0, Baso # (Auto) 0.1, Absolute Nucleated RBC 0.02, Nucleated RBC % 0.3, Manual Slide Review Indicated, RBC Morph Micro Appear 4+ ANISOCYTOSIS Lab results reviewed: Yes Fish Bones: 04/04/23 04:23 04/04/23 04:23 Home Medications and Allergies Home Medications: Ambulatory Orders No Known Home Medications 04/04/23 Active Medications Lorazepam (Lorazepam 2 Mg/Ml Vial) 2 - 20 mg IVP Q15M PRN; Protocol PRN Reason: RASS > 0 Last Admin: 04/03/23 20:49 Dose: 2 mg Nicotine (Nicotine 14 Mg Patch) 1 patch TOP DAILY [facility] Last Admin: 04/03/23 08:52 Dose: Not Given Ondansetron HCl (Ondansetron 4 Mg/2 Ml Vial) 4 mg IVP Q6HR PRN PRN Reason: Nausea / Vomiting Prochlorperazine Edisylate (Prochlorperazine 10 Mg/2 Ml Vial) 10 mg IVP Q6HR PRN PRN Reason: Nausea / Vomiting Last Admin: 04/02/23 15:39 Dose: 10 mg Sodium Chloride (Sodium Chloride Flush 0.9% 10 Ml Syringe) 10 ml IVP PRN PRN PRN Reason: NEEDED PER PROVIDER ORDERS Sodium Chloride (Sodium Chloride Flush 0.9% 10 Ml Syringe) 10 ml IVP 0100,[id number],1700 [facility] Last Admin: 04/03/23 20:53 Dose: 10 ml Zolpidem Tartrate (Zolpidem 5 Mg Tablet) 5 mg PO QPM PRN PRN Reason: Insomnia Last Admin: 04/03/23 23:41 Dose: 5 mg No Known Home Medications 04/04/23 Allergies/Adverse Reactions: Allergies Allergy/AdvReac Type Severity Reaction Status Date / Time aspirin [From [place]] Allergy Rash Verified 04/02/23 11:20 citric acid Allergy Rash Verified 04/02/23 11:20 [From [place]] sodium bicarbonate Allergy Rash Verified 04/02/23 11:20 [From [place]] Anes History & Medical History - Anesthetic History Anesthesia Complications: reports: No previous complications Family history of Anesthesia Complications: Denies Family history of Malignant Hyperthermia: Denies - Medical History Cardiovascular: reports: None Pulmonary: reports: None Gastrointestinal: reports: Other (see HP) Urinary: reports: None Neuro: reports: None Musculoskeletal: reports: None Endocrine/Autoimmune: reports: None Blood Disorders: reports: None Skin: reports: None Smoking Status: Current every day smoker Psychosocial: reports: Depression, Anxiety, Alcohol Other Past Medical History: ETOH abuse, insomnia - Surgical History General: reports: Other Exam General: Alert, Oriented x3, Cooperative Dental: WNL Mouth Openin Fingerbreadth Neck Mobility: Normal Mallampati classification: II Thyromental Distance: 4-6 cm Respiratory: Lungs clear Cardiovascular: Regular rate Plan Anesthesia Type: General, MAC Consent for Procedure(s) Verified and Reviewed: Yes Code Status: Attempt Resuscitation ASA classification: 2-Mild systemic disease Is this case an emergency?: No
[2023-04-04] MEDS ORDERED: ZOLPIDEM 5 MG TABLET PO PRN (11:56)
[2023-04-04] MEDS: DEXTROSE 5%-0.9% NACL 1,000 ML IV SCH (12:37)
[2023-04-04] MEDS: SODIUM CHLORIDE FLUSH 0.9% 10 ML SYRINGE IVP SCH ×2 (12:37→18:13)
[2023-04-04] MEDS: PANTOPRAZOLE 40 MG VIAL IV SCH ×2 (12:39→21:32)
[2023-04-04] MEDS ORDERED: PROPOFOL 500 MG/50 ML 500 MG/50 ML VIAL ONE (14:17)
[2023-04-04] MEDS ORDERED: LIDOCAINE-PF 2% 10 ML AMP SUBQ ONE (14:17)
[2023-04-04] MEDS ORDERED: MIDAZOLAM 2 MG/2 ML VIAL ONE (14:20)
--- NOTE | 2023-04-04 15:39 | PROVIDER PROGRESS NOTE ---
Assessment/Plan - Problem List (1) Alcohol withdrawal delirium Assessment/Plan: This morning he was alert and communicating, but confused about time. He was transferred out of the ICU. Planning for an afternoon EGD, I discussed him with the surgeon. In the afternoon he was hallucinating, delirious and could not sign consent for EGD. He was then disoriented, CIWA scor 6. Plan: Continue with CIWA protocol and as needed Ativan Begin Librium scheduled (2) ETOH abuse Conclusion/Plan: Yesterday he spoke to social security assessor Cristina and we obtained details about his alcohol abuse: He drinks up to 12 beers per night. The binge drinking was recent and he was doing it to manage insomnia. He does have elevated AST greater than ALT but has normal INR and platelets and bilirubin. He presented intoxicated but his first CIWA score was 19, thus he was placed in the ICU. Ativan prn and CIWA scoring ordered. We stopped the banana bag iv hydration yesterday Plan: Continue with CIWA scoring and IV Ativan prn (3) Insomnia Conclusion/Plan: Patient was seen by social security assessor today and using an blow up operator to give tablet, he told them he has had insomnia for 9 months and that his alcohol intake is gone up over that time and especially over the last 5 days he has been binging. The alcohol intake was done in order to fall asleep. He is requesting management of insomnia Plan: I will check his T4 and TSH for Hyperthyroidism. Cont Ambien, will decrease dose from 5 mg to 2.5 mg. (4) Upper GI bleeding Impression: There was a red globular substance in his emesis bag. It is unclear if someone witnessed him vomiting or if this was sputum or nasal secretions. Being a heavy alcohol drinker, he does have risk for bleeding varices or gastritis or an ulcer. No hematemasis noted since admitted. He was moved out of ICU this morning Plan: He was NPO after midnight last night and General surgery was planning an EGD, I spoke to today's surgeon Dr Ajit Rangel. Unfortunately he was in florid alcohol withdrawal and hallucinating and delirious when he needed to sign his consent for the EGD therefore was not done today. A diet was resumed today. Cont IV Protonix twice daily empirically (5) Anemia Conclusion/Plan: His admission hemoglobin is 8.7 and has decreased to 8. today Hgb is 8.6 (all labs were reviewewd). We presume he has an upper GI bleed that is acute. 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 Plan: Follow his hemoglobin daily Transfuse if hemoglobin is under 7 EGD is planned, as above We will also check his B12, folate levels and iron stores and plan to replace if low Qualifiers: Anemia type: unspecified type Qualified Code(s): D64.9 - Anemia, unspecified - Current Meds Current Meds: Current Medications Generic Name Dose Route Start Last Admin Trade Name Freq PRN Reason Stop Dose Admin Dextrose/Sodium Chloride 1,000 mls @ 83.333 mls/hr 04/04/23 12:00 04/04/23 12:37 D5ns IV 83.333 mls/hr .Q12H JIMMY Administration Lorazepam 2 - 20 mg 04/02/23 14:47 04/03/23 20:49 Lorazepam 2 Mg/Ml Vial IVP 2 mg Q15M PRN Administration RASS > 0 Protocol Pantoprazole Sodium 40 mg 04/04/23 12:00 04/04/23 12:39 Pantoprazole 40 Mg Vial IV 40 mg BID JIMMY Administration Prochlorperazine Edisylate 10 mg 04/02/23 13:57 04/02/23 15:39 Prochlorperazine 10 Mg/2 Ml Vial IVP 10 mg Q6HR PRN Administration Nausea / Vomiting Sodium Chloride 10 ml 04/02/23 17:00 04/04/23 12:37 Sodium Chloride Flush 0.9% 10 Ml Syringe IVP 10 ml 0100,0900,1700 JIMMY Administration - Lab Result Fish Bone Diagrams: 04/04/23 04:23 04/04/23 04:23 - Additional Planning My Orders: My Active Orders 04/04/23 07:40 Transfer [Admit \ Transfer \ Status] [RC] .ONCE 04/04/23 11:56 Telemetry-Discontinue [RC] .ONCE Zolpidem [Ambien] 2.5 mg PO QPM PRN 04/04/23 12:00 Dextrose 5%-0.9% NaCl [D5ns] 1,000 ml IV 83.333 mls/hr Pantoprazole [Protonix] 40 mg IV BID 04/04/23 Dinner DIET [Soft Mechanical Diet] [DIET] 04/04/23 18:00 chlordiazePOXIDE [Librium] 5 mg PO Q6HR 04/05/23 05:00 CBC W/O DIFF (HEMOGRAM) [HEME] DAILYLAB COMPREHENSIVE METABOLIC PANEL [CHEM] DAILYLAB 04/06/23 05:00 CBC W/O DIFF (HEMOGRAM) [HEME] DAILYLAB COMPREHENSIVE METABOLIC PANEL [CHEM] DAILYLAB Subjective - Subjective Nursing Reports: Other (This morning he was alert and communicating, but confused about time. In the afternoon he was hallucinating, delirious and could not sign consent for EGD) Objective Vital Signs: Vital Signs - 24 hr 04/03/23 04/03/23 04/03/23 16:00 17:00 17:58 Temperature 37.1 C Heart Rate [ 99 101 H 91 Monitoring electrodes] Respiratory 32 H 20 30 H Rate Blood Pressure 145/81 H 123/78 140/72 H [Left Brachial artery] O2 Saturation 98 100 100 04/03/23 04/03/23 04/03/23 19:00 20:00 21:00 Temperature Heart Rate [ 92 93 97 Monitoring electrodes] Respiratory 26 H 29 H 22 Rate Blood Pressure 141/89 H 138/87 H 137/88 H [Left Brachial artery] O2 Saturation 100 97 100 04/03/23 04/03/23 04/04/23 22:00 23:00 00:00 Temperature 37.0 C Heart Rate [ 88 104 H 127 H Monitoring electrodes] Respiratory 31 H 18 20 Rate Blood Pressure 119/77 129/79 133/86 H [Left Brachial artery] O2 Saturation 99 99 99 04/04/23 04/04/23 04/04/23 01:00 02:00 03:00 Temperature Heart Rate [ 84 83 114 H Monitoring electrodes] Respiratory 26 H 23 26 H Rate Blood Pressure 121/68 125/80 126/73 [Left Brachial artery] O2 Saturation 99 98 100 04/04/23 04/04/23 04/04/23 04:00 05:00 06:00 Temperature 36.9 C Heart Rate [ 87 93 85 Monitoring electrodes] Respiratory 23 23 24 Rate Blood Pressure 113/65 111/85 H 118/76 [Left Brachial artery] O2 Saturation 99 100 98 04/04/23 04/04/23 04/04/23 07:00 08:00 09:00 Temperature 36.9 C Heart Rate [ 75 114 H 91 Monitoring electrodes] Respiratory 21 27 H 23 Rate Blood Pressure 117/63 121/75 129/85 H [Left Brachial artery] O2 Saturation 99 100 98 04/04/23 04/04/23 04/04/23 10:00 11:00 12:00 Temperature 37 C Heart Rate [ 91 88 89 Monitoring electrodes] Respiratory 27 H 27 H 25 H Rate Blood Pressure 121/84 H 135/83 H 121/73 [Left Brachial artery] O2 Saturation 99 100 100 04/04/23 13:00 Temperature Heart Rate [ 85 Monitoring electrodes] Respiratory 24 Rate Blood Pressure 121/73 [Left Brachial artery] O2 Saturation 98 Oxygen O2 Source Room air I&O (Last 24 Hrs): Intake and Output Totals x24h 04/02/23 04/03/23 04/04/23 23:59 23:59 23:59 Intake Total 2001.2 4691.4 120 Output Total 1400 4215 1050 Balance 601.2 476.4 -930 General: Alert, No acute distress HEENT: EOMI, Mucous membr. moist/pink Neck: Supple, No JVD Neuro: Alert, Non Focal Cardiovascular: Regular rate, No murmurs Respiratory: Chest non-tender Abdomen: Normal bowel sounds, Soft, No tenderness Extremities: No clubbing, No edema, No tenderness/swelling - Results Results: Laboratory Results WBC 4.6 x10^3/uL (4.8-10.8) L 04/04/23 04:23 RBC 4.66 10^6/uL (4.70-6.10) L 04/04/23 04:23 Hgb 8.6 g/dL (14.0-18.0) L 04/04/23 04:23 Hct 30.8 % (42.0-52.0) L 04/04/23 04:23 MCV 66.1 fL (80.0-94.0) L 04/04/23 04:23 MCH 18.5 pg (27.0-31.0) L 04/04/23 04:23 MCHC 27.9 g/dL (32.0-36.0) L 04/04/23 04:23 RDW 21.4 % (12.0-15.0) H 04/04/23 04:23 Plt Count 233 10^3/uL (130-450) 04/04/23 04:23 MPV 9.4 fL (7.4-11.4) 04/04/23 04:23 Neut # (Auto) 5.3 10^3/uL (1.5-6.6) 04/02/23 11:48 Lymph # (Auto) 1.4 10^3/uL (1.5-3.5) L 04/02/23 11:48 [place] # (Auto) 1.0 10^3/uL (0.0-1.0) 04/02/23 11:48 Eos # (Auto) 0.0 10^3/uL (0.0-0.7) 04/02/23 11:48 Baso # (Auto) 0.1 10^3/uL (0.0-0.1) 04/02/23 11:48 Absolute Nucleated RBC 0.02 x10^3/uL 04/02/23 11:48 Nucleated RBC % 0.3 /100WBC 04/02/23 11:48 Manual Slide Review Indicated 04/02/23 11:48 RBC Morph Micro Appear 4+ ANISOCYTOSIS (NORMAL) 04/02/23 11:48 PT 11.7 secs (9.9-12.6) 04/02/23 11:48 INR 1.1 (0.8-1.2) 04/02/23 11:48 VBG pH 7.467 (7.31-7.41) H 04/04/23 04:23 Ionized Calcium 1.15 mmol/L (1.15-1.33) 04/04/23 04:23 Sodium 134 mmol/L (135-145) L 04/04/23 04:23 Potassium 4.0 mmol/L (3.5-4.5) 04/04/23 04:23 Chloride 102 mmol/L (101-111) 04/04/23 04:23 Carbon Dioxide 24 mmol/L (21-32) 04/04/23 04:23 Anion Gap 8.0 (6-13) 04/04/23 04:23 BUN 5 mg/dL (6-20) L 04/04/23 04:23 Creatinine 0.6 mg/dL (0.6-1.3) 04/04/23 04:23 Estimated GFR (MDRD) 146 (>89) 04/04/23 04:23 Glucose 105 mg/dL (74-104) H 04/04/23 04:23 Calcium 9.6 mg/dL (8.5-10.3) 04/04/23 04:23 Phosphorus 3.0 mg/dL (2.5-5.0) 04/04/23 04:23 Magnesium 2.1 mg/dL (1.7-2.3) 04/04/23 04:23 Total Bilirubin 1.2 mg/dL (0.2-1.0) H 04/04/23 04:23 AST 103 IU/L (10-42) H 04/04/23 04:23 ALT 79 IU/L (10-60) H 04/04/23 04:23 Alkaline Phosphatase 138 IU/L (42-121) H 04/04/23 04:23 Ammonia 53.9 umol/L (18-72) 04/04/23 04:23 Total Protein 8.0 g/dL (6.4-8.9) 04/04/23 04:23 Albumin 4.3 g/dL (3.2-5.5) 04/04/23 04:23 Globulin 3.7 g/dL (2.1-4.2) 04/04/23 04:23 Albumin/Globulin Ratio 1.2 (1.0-2.2) 04/04/23 04:23 Lipase 87 U/L (11-82) H 04/03/23 04:17 Vitamin B12 384 pg/mL (180-914) 04/04/23 04:22 Folate 25.5 ng/mL (5.90 - >24.8) 04/04/23 04:22 Urine Color LIGHT YELLOW 04/02/23 13:34 Urine Clarity CLEAR (CLEAR) 04/02/23 13:34 Urine pH 7.0 PH (5.0-7.5) 04/02/23 13:34 Ur Specific [place] 1.010 (1.002-1.030) 04/02/23 13:34 Urine Protein NEGATIVE mg/dL (NEGATIVE) 04/02/23 13:34 Urine Glucose (UA) NEGATIVE mg/dL (NEGATIVE) 04/02/23 13:34 Urine Ketones NEGATIVE mg/dL (NEGATIVE) 04/02/23 13:34 Urine Occult Blood TRACE-LYSE (NEGATIVE) 04/02/23 13:34 Urine Nitrite NEGATIVE (NEGATIVE) 04/02/23 13:34 Urine Bilirubin NEGATIVE (NEGATIVE) 04/02/23 13:34 Urine Urobilinogen 0.2 (NORMAL) E.U./dL (NORMAL) 04/02/23 13:34 Ur Leukocyte Esterase NEGATIVE (NEGATIVE) 04/02/23 13:34 Ur Microscopic Review NOT INDICATED 04/02/23 13:34 Urine Culture Comments NOT INDICATED 04/02/23 13:34 Nasal Screen MRSA (PCR) NEGATIVE (NEGATIVE) 04/02/23 19:30 Ethyl Alcohol < 10.0 mg/dL 04/04/23 04:23 Blood Type O POSITIVE 04/02/23 11:48 Blood Type Recheck O POSITIVE 04/02/23 13:04 Antibody Screen NEGATIVE 04/02/23 11:48
[2023-04-04] MEDS: chlordiazePOXIDE 5 MG CAPSULE PO SCH ×2 (18:13→23:19)
[2023-04-05] MEDS: DEXTROSE 5%-0.9% NACL 1,000 ML IV SCH ×2 (00:07→11:18)
[2023-04-05] MEDS: SODIUM CHLORIDE FLUSH 0.9% 10 ML SYRINGE IVP SCH ×4 (00:07→23:38)
[2023-04-05 04:58] LABS: HCT - HEMATOCRIT 28.4 % (42.0-52.0); MEAN CORPUSCULAR HEMOGLOBIN 18.6 pg (27.0-31.0); MEAN CORPUSCULAR HGB CONC 28.2 g/dL (32.0-36.0); MEAN PLATELET VOLUME 9.7 fL (7.4-11.4); RED BLOOD COUNT 4.3 10^6/uL (4.70-6.10); RED CELL DISTRIBUTION WIDTH 21.1 % (12.0-15.0); WHITE BLOOD COUNT 5.9 x10^3/uL (4.8-10.8)
[2023-04-05] MEDS: chlordiazePOXIDE 5 MG CAPSULE PO SCH ×4 (05:00→23:38)
[2023-04-05 05:16] LABS: ALBUMIN/GLOBULIN RATIO 1.3 (1.0-2.2); BILIRUBIN,TOTAL 0.9 mg/dL (0.2-1.0); CALCIUM 8.8 mg/dL (8.5-10.3); CREATININE 0.6 mg/dL (0.6-1.3); POTASSIUM 3.5 mmol/L (3.5-4.5); TOTAL PROTEIN 7.2 g/dL (6.4-8.9)
[2023-04-05] MEDS: PANTOPRAZOLE 40 MG VIAL IV SCH (08:33)
--- NOTE | 2023-04-05 10:26 | PROVIDER PROGRESS NOTE ---
Assessment/Plan - Problem List (1) Alcohol withdrawal delirium Assessment/Plan: Yesterday he was alert and communicating in a.m., but confused about time. He was transferred out of the ICU. In the afternoon yesterday he was hallucinating, delirious and could not sign consent for EGD. No EGD was done. I started him on Librium 5 mg 4 times daily Today he is much improved, CIWA score is 2 Plan: Continue with CIWA protocol and as needed Ativan and scheduled Librium. I will plan a Librium taper starting tomorrow No further banana bag. I will put him on daily thiamine and daily vitamin (2) ETOH abuse Conclusion/Plan: He presented intoxicated but his first CIWA score was 19, thus he was placed in the ICU. Ativan prn and CIWA scoring ordered. He got banana bag iv hydration When he spoke to social media community manager Cristina, we obtained details about his alcohol abuse : He drinks up to 12 beers per night. The binge drinking was recent and he was doing it to manage insomnia. He does have elevated AST greater than ALT but has normal INR and platelets and bilirubin. Plan: Continue with CIWA scoring and IV Ativan prn and scheduled Librium. I will plan a Librium taper starting tomorrow No further banana bag. I will put him on daily thiamine and daily vitamin He has received resources from social media community manager regarding cessation of alcohol abuse (3) Insomnia Conclusion/Plan: Patient was seen by social media community manager and using an hvac sales representative tablet, he told SW he has had insomnia for 9 months and that his alcohol intake has gone up over that time and especially over the 5 days before admission, he has been binging. he said his alcohol intake was done in order to fall asleep. He was requesting management of insomnia. I therefore started him on Ambien 5 mg which oversedated him (per RN), so it was decreased to 2.5 mg, which he got last night and that dose did not help him sleep Plan: Resume Ambien 5 mg dose I will check his T4 and TSH for Hyperthyroidism. (4) Upper GI bleeding Impression: There was a red globular substance in his emesis bag. It is unclear if someone witnessed him vomiting or if this was sputum or nasal secretions. Being a heavy alcohol drinker, he does have risk for bleeding varices or gastritis or an ulcer. No hematemasis noted since admitted. He was moved out of ICU He then could not give consent for EGD yesterday since he was in florid alcohol withdrawal. No EGD was done yesterday Plan: Today I contacted the general surgeon, Dr. Grimm in fluid and discussed that his hemoglobin has been stable and without more hematemesis I we will cancel the request for EGD and start feeding I will change his empiric IV Protonix twice daily to Protonix po BID (5) Anemia Conclusion/Plan: His admission hemoglobin was 8.7 and has decreased to 8. His hemoglobin has been stable over several days (all labs were reviewewd). We presumed he has an upper GI bleed that is acute. I checked his B12 and folate levels which were WNL. Plan: Follow his hemoglobin daily. Transfuse if hemoglobin is under 7 EGD is no longer planned i will also check his iron stores and plan to replace if low Qualifiers: Anemia type: unspecified type Qualified Code(s): D64.9 - Anemia, unspe cified - Current Meds Current Meds: Current Medications Generic Name Dose Route Start Last Admin Trade Name Freq PRN Reason Stop Dose Admin Chlordiazepoxide HCl 5 mg 04/04/23 18:00 04/05/23 05:00 Chlordiazepoxide 5 Mg Capsule PO 5 mg Q6HR JIMMY Administration Dextrose/Sodium Chloride 1,000 mls @ 83.333 mls/hr 04/04/23 12:00 04/05/23 00:07 D5ns IV 04/05/23 12:00 83.333 mls/hr .Q12H JIMMY Administration Lorazepam 2 - 20 mg 04/02/23 14:47 04/03/23 20:49 Lorazepam 2 Mg/Ml Vial IVP 2 mg Q15M PRN Administration RASS > 0 Protocol Prochlorperazine Edisylate 10 mg 04/02/23 13:57 04/02/23 15:39 Prochlorperazine 10 Mg/2 Ml Vial IVP 10 mg Q6HR PRN Administration Nausea / Vomiting Sodium Chloride 10 ml 04/02/23 17:00 04/05/23 08:33 Sodium Chloride Flush 0.9% 10 Ml Syringe IVP 10 ml 0100,0900,1700 JIMMY Administration - Lab Result Fish Bone Diagrams: 04/05/23 04:24 04/05/23 04:24 - Additional Planning My Orders: My Active Orders 04/04/23 11:56 Telemetry-Discontinue [RC] .ONCE 04/04/23 12:00 Dextrose 5%-0.9% NaCl [D5ns] 1,000 ml IV 83.333 mls/hr 04/04/23 18:00 chlordiazePOXIDE [Librium] 5 mg PO Q6HR 04/05/23 00:01 DIET [NPO except Meds at Midnight] [DIET] 04/05/23 Lunch DIET [Soft Mechanical Diet] [DIET] 04/05/23 21:00 Pantoprazole [Protonix] 40 mg PO BID Zolpidem [Ambien] 5 mg PO QPM 04/06/23 05:00 CBC W/O DIFF (HEMOGRAM) [HEME] DAILYLAB COMPREHENSIVE METABOLIC PANEL [CHEM] DAILYLAB Subjective - Subjective Patient Reports: No Complaints Nursing Reports: Other (Did not sleep on the lower Ambien 2.5 mg dose. Librium is helping his withdrawal sx (per RN report)) Objective Vital Signs: Vital Signs - 24 hr 04/04/23 04/04/23 04/04/23 11:00 12:00 13:00 Temperature 37 C Heart Rate [ 88 89 85 Monitoring electrodes] Respiratory 27 H 25 H 24 Rate Blood Pressure 135/83 H 121/73 121/73 [Left Brachial artery] O2 Saturation 100 100 98 04/04/23 04/04/23 04/05/23 17:00 21:00 00:54 Temperature 36.7 C 37.1 C 37.0 C Heart Rate [ 106 H 90 83 Monitoring electrodes] Respiratory 17 23 28 H Rate Blood Pressure 124/74 130/86 H 120/85 H [Left Brachial artery] O2 Saturation 98 99 99 04/05/23 04/05/23 05:00 08:00 Temperature 37.0 C 36.8 C Heart Rate [ 80 79 Monitoring electrodes] Respiratory 20 20 Rate Blood Pressure 126/83 H 112/80 [Left Brachial artery] O2 Saturation 99 99 Oxygen O2 Source Room air I&O (Last 24 Hrs): Intake and Output Totals x24h 04/03/23 04/04/23 04/05/23 23:59 23:59 23:59 Intake Total 4691.4 480 958.33 Output Total 4215 1800 Balance 476.4 -1320 958.33 General: Alert, Oriented x3 (per RN) HEENT: EOMI, Mucous membr. moist/pink Neck: Supple Neuro: Alert, Non Focal Cardiovascular: Regular rate Respiratory: No respiratory distress Abdomen: Soft, No tenderness Extremities: No clubbing, No edema - Results Results: Laboratory Results WBC 5.9 x10^3/uL (4.8-10.8) 04/05/23 04:24 RBC 4.30 10^6/uL (4.70-6.10) L 04/05/23 04:24 Hgb 8.0 g/dL (14.0-18.0) L 04/05/23 04:24 Hct 28.4 % (42.0-52.0) L 04/05/23 04:24 MCV 66.0 fL (80.0-94.0) L 04/05/23 04:24 MCH 18.6 pg (27.0-31.0) L 04/05/23 04:24 MCHC 28.2 g/dL (32.0-36.0) L 04/05/23 04:24 RDW 21.1 % (12.0-15.0) H 04/05/23 04:24 Plt Count 223 10^3/uL (130-450) 04/05/23 04:24 MPV 9.7 fL (7.4-11.4) 04/05/23 04:24 Neut # (Auto) 5.3 10^3/uL (1.5-6.6) 04/02/23 11:48 Lymph # (Auto) 1.4 10^3/uL (1.5-3.5) L 04/02/23 11:48 [place] # (Auto) 1.0 10^3/uL (0.0-1.0) 04/02/23 11:48 Eos # (Auto) 0.0 10^3/uL (0.0-0.7) 04/02/23 11:48 Baso # (Auto) 0.1 10^3/uL (0.0-0.1) 04/02/23 11:48 Absolute Nucleated RBC 0.02 x10^3/uL 04/02/23 11:48 Nucleated RBC % 0.3 /100WBC 04/02/23 11:48 Manual Slide Review Indicated 04/02/23 11:48 RBC Morph Micro Appear 4+ ANISOCYTOSIS (NORMAL) 04/02/23 11:48 PT 11.7 secs (9.9-12.6) 04/02/23 11:48 INR 1.1 (0.8-1.2) 04/02/23 11:48 VBG pH 7.467 (7.31-7.41) H 04/04/23 04:23 Ionized Calcium 1.15 mmol/L (1.15-1.33) 04/04/23 04:23 Sodium 134 mmol/L (135-145) L 04/05/23 04:24 Potassium 3.5 mmol/L (3.5-4.5) 04/05/23 04:24 Chloride 105 mmol/L (101-111) 04/05/23 04:24 Carbon Dioxide 22 mmol/L (21-32) 04/05/23 04:24 Anion Gap 7.0 (6-13) 04/05/23 04:24 BUN 6 mg/dL (6-20) 04/05/23 04:24 Creatinine 0.6 mg/dL (0.6-1.3) 04/05/23 04:24 Estimated GFR (MDRD) 146 (>89) 04/05/23 04:24 Glucose 238 mg/dL (74-104) H 04/05/23 04:24 Calcium 8.8 mg/dL (8.5-10.3) 04/05/23 04:24 Phosphorus 3.0 mg/dL (2.5-5.0) 04/04/23 04:23 Magnesium 2.1 mg/dL (1.7-2.3) 04/04/23 04:23 Total Bilirubin 0.9 mg/dL (0.2-1.0) 04/05/23 04:24 AST 111 IU/L (10-42) H 04/05/23 04:24 ALT 93 IU/L (10-60) H 04/05/23 04:24 Alkaline Phosphatase 114 IU/L (42-121) 04/05/23 04:24 Ammonia 53.9 umol/L (18-72) 04/04/23 04:23 Total Protein 7.2 g/dL (6.4-8.9) 04/05/23 04:24 Albumin 4.0 g/dL (3.2-5.5) 04/05/23 04:24 Globulin 3.2 g/dL (2.1-4.2) 04/05/23 04:24 Albumin/Globulin Ratio 1.3 (1.0-2.2) 04/05/23 04:24 Lipase 87 U/L (11-82) H 04/03/23 04:17 Vitamin B12 384 pg/mL (180-914) 04/04/23 04:22 Folate 25.5 ng/mL (5.90 - >24.8) 04/04/23 04:22 Urine Color LIGHT YELLOW 04/02/23 13:34 Urine Clarity CLEAR (CLEAR) 04/02/23 13:34 Urine pH 7.0 PH (5.0-7.5) 04/02/23 13:34 Ur Specific [place] 1.010 (1.002-1.030) 04/02/23 13:34 Urine Protein NEGATIVE mg/dL (NEGATIVE) 04/02/23 13:34 Urine Glucose (UA) NEGATIVE mg/dL (NEGATIVE) 04/02/23 13:34 Urine Ketones NEGATIVE mg/dL (NEGATIVE) 04/02/23 13:34 Urine Occult Blood TRACE-LYSE (NEGATIVE) 04/02/23 13:34 Urine Nitrite NEGATIVE (NEGATIVE) 04/02/23 13:34 Urine Bilirubin NEGATIVE (NEGATIVE) 04/02/23 13:34 Urine Urobilinogen 0.2 (NORMAL) E.U./dL (NORMAL) 04/02/23 13:34 Ur Leukocyte Esterase NEGATIVE (NEGATIVE) 04/02/23 13:34 Ur Microscopic Review NOT INDICATED 04/02/23 13:34 Urine Culture Comments NOT INDICATED 04/02/23 13:34 Nasal Screen MRSA (PCR) NEGATIVE (NEGATIVE) 04/02/23 19:30 Ethyl Alcohol < 10.0 mg/dL 04/04/23 04:23 Blood Type O POSITIVE 04/02/23 11:48 Blood Type Recheck O POSITIVE 04/02/23 13:04 Antibody Screen NEGATIVE 04/02/23 11:48
[2023-04-05] MEDS: THIAMINE 100 MG TABLET PO SCH (11:18)
[2023-04-05] MEDS: PRENATAL VITAMIN TABLET PO SCH (11:18)
[2023-04-05] MEDS: ACETAMINOPHEN 325 MG TABLET PO PRN (20:10)
[2023-04-05] MEDS: PANTOPRAZOLE 40 MG TABLET PO SCH (20:10)
[2023-04-05] MEDS: ZOLPIDEM 5 MG TABLET PO SCH (20:10)
[2023-04-06] MEDS: chlordiazePOXIDE 5 MG CAPSULE PO SCH ×3 (05:05→21:30)
[2023-04-06 05:33] LABS: HCT - HEMATOCRIT 30.5 % (42.0-52.0); HGB - HEMOGLOBIN 8.4 g/dL (14.0-18.0); MEAN CORPUSCULAR HEMOGLOBIN 18.7 pg (27.0-31.0); MEAN CORPUSCULAR HGB CONC 27.5 g/dL (32.0-36.0); MEAN CORPUSCULAR VOLUME 67.8 fL (80.0-94.0); MEAN PLATELET VOLUME 9.7 fL (7.4-11.4); RED BLOOD COUNT 4.5 10^6/uL (4.70-6.10); RED CELL DISTRIBUTION WIDTH 22.3 % (12.0-15.0); WHITE BLOOD COUNT 5.6 x10^3/uL (4.8-10.8)
[2023-04-06 05:55] LABS: ALBUMIN 4.1 g/dL (3.2-5.5); ALBUMIN/GLOBULIN RATIO 1.3 (1.0-2.2); BILIRUBIN,TOTAL 0.8 mg/dL (0.2-1.0); CALCIUM 9.2 mg/dL (8.5-10.3); CREATININE 0.7 mg/dL (0.6-1.3); POTASSIUM 3.7 mmol/L (3.5-4.5); TOTAL PROTEIN 7.2 g/dL (6.4-8.9)
[2023-04-06 06:05] LABS: THYROID STIMULATING HORMONE 2.31 uIU/mL (0.34-5.60)
[2023-04-06] MEDS: PANTOPRAZOLE 40 MG TABLET PO SCH ×2 (08:49→20:23)
[2023-04-06] MEDS: PRENATAL VITAMIN TABLET PO SCH (08:49)
[2023-04-06] MEDS: ACETAMINOPHEN 325 MG TABLET PO PRN (08:49)
[2023-04-06] MEDS: THIAMINE 100 MG TABLET PO SCH (08:49)
[2023-04-06] MEDS: FERROUS SULFATE 325 MG TABLET PO SCH (08:49)
[2023-04-06] MEDS: SODIUM CHLORIDE FLUSH 0.9% 10 ML SYRINGE IVP SCH ×2 (08:50→16:45)
--- NOTE | 2023-04-06 13:30 | PROVIDER PROGRESS NOTE ---
Assessment/Plan - Problem List (1) Alcohol withdrawal delirium Assessment/Plan: Two days ago he was hallucinating, delirious and could not sign consent for EGD. No EGD was done. I started him then on Librium 5 mg QID, and his prn iv Ativan for CIWA score continued. Plan: No further banana bag. Cont daily pothiamine and daily vitamin Continue with CIWA protocol and as needed Ativan and cont scheduled Librium. Today will be 5 mg TID, tomorrow will be a.m. Librium I anticipate discharging him tomorrow (2) ETOH abuse Conclusion/Plan: He presented intoxicated but his first CIWA score was 19, thus he was placed in the ICU. Ativan prn and CIWA scoring ordered. He got banana bag iv hydration When he spoke to hospice social worker Cristina, we obtained details about his alcohol abuse: He drinks up to 12 beers per night. The binge drinking was recent and he was doing it to manage insomnia. He does have elevated AST greater than ALT but has normal INR and platelets and bilirubin. Plan: Continue with CIWA scoring and IV Ativan prn and scheduled Librium. Librium t aper starting today No further banana bag. Cont daily po thiamine and daily vitamin He has received resources from hospice social worker regarding cessation of alcohol abuse (3) Insomnia Conclusion/Plan: Patient was seen by hospice social worker and using an denture finisher tablet, he told SW he has had insomnia for 9 months and that his alcohol intake has gone up over that time and especially over the 5 days before admission, he had been binging. He said his alcohol intake was done in order to fall asleep. He was requesting management of insomnia. I therefore started him on Ambien 5 mg which oversedated him after the first dose, so it was decreased to 2.5 mg, which did not help him sleep. I resumed the I checked his T4 and TSH to eval for Hyperthyroidism and they were WNL. Plan: An Ambien prescription will be provided at time of discharge. (4) Upper GI bleeding Impression: There was a red globular substance in his emesis bag. It is unclear if someone witnessed him vomiting or if this was sputum or nasal secretions. Being a heavy alcohol drinker, he does have risk for bleeding varices or gastritis or an ulcer. His stool was guaic pos. No hematemasis noted since admitted. He was moved out of ICU He then could not give consent for EGD yesterday since he was in florid alcohol withdrawal. No EGD was done yesterday Plan: Since his hemoglobin has been stable and without more hematemesis, I cancelled the request for EGD I changed his empiric IV Protonix twice daily to Protonix po BID, which will be prescribed for after DCh (5) Anemia Conclusion/Plan: His admission hemoglobin was 8.7 and has decreased to 8. His hemoglobin has been stable over several days (all labs were reviewewd). We presumed he has an upper GI bleed that is acute. I checked his B12 and folate levels which were WNL. I also checked his iron stores, which were low (saturation was 4%). Plan: Follow his hemoglobin daily. Transfuse if hemoglobin is under 7 EGD is no longer planned Begin daily oral ferrous sulfate, and to continue after discharge - Current Meds Current Meds: Current Medications Generic Name Dose Route Start Last Admin Trade Name Freq PRN Reason Stop Dose Admin Acetaminophen 650 mg 04/05/23 19:27 04/06/23 08:49 Acetaminophen 325 Mg Tablet PO 650 mg Q6HR PRN Administration Pain or Fever > 38C (100.4F) Chlordiazepoxide HCl 5 mg 04/06/23 14:00 04/06/23 13:13 Chlordiazepoxide 5 Mg Capsule PO 5 mg TID JIMMY Administration Ferrous Sulfate 325 mg 04/06/23 08:00 04/06/23 08:49 Ferrous Sulfate 325 Mg Tablet PO 325 mg DAILYWM JIMMY Administration Lorazepam 2 - 20 mg 04/02/23 14:47 04/03/23 20:49 Lorazepam 2 Mg/Ml Vial IVP 2 mg Q15M PRN Administration RASS > 0 Protocol Pantoprazole Sodium 40 mg 04/05/23 21:00 04/06/23 08:49 Pantoprazole 40 Mg Tablet PO 40 mg BID JIMMY Administration Multivit/Folic Acid/Iron 1 tab 04/05/23 12:00 04/06/23 08:49 Vitamin Tablet PO 1 tab DAILYWM JIMMY Administration Prochlorperazine Edisylate 10 mg 04/02/23 13:57 04/02/23 15:39 Prochlorperazine 10 Mg/2 Ml Vial IVP 10 mg Q6HR PRN Administration Nausea / Vomiting Sodium Chloride 10 ml 04/02/23 17:00 04/06/23 08:50 Sodium Chloride Flush 0.9% 10 Ml Syringe IVP 10 ml 0100,0900,1700 JIMMY Administration Thiamine HCl 100 mg 04/05/23 12:00 04/06/23 08:49 Thiamine 100 Mg Tablet PO 100 mg DAILY JIMMY Administration Zolpidem Tartrate 5 mg 04/05/23 21:00 04/05/23 20:10 Zolpidem 5 Mg Tablet PO 5 mg QPM JIMMY Administration - Lab Result Fish Bone Diagrams: 04/06/23 05:00 04/06/23 05:00 - Additional Planning My Orders: My Active Orders 04/05/23 19:27 Acetaminophen [Tylenol] 650 mg PO Q6HR PRN 04/05/23 21:00 Pantoprazole [Protonix] 40 mg PO BID Zolpidem [Ambien] 5 mg PO QPM 04/06/23 08:00 Ferrous Sulfate [Feosol] 325 mg PO DAILYWM 04/06/23 14:00 chlordiazePOXIDE [Librium] 5 mg PO TID Subjective - Subjective Patient Reports: Resting Comfortably, No Complaints Objective Vital Signs: Vital Signs - 24 hr 04/05/23 04/05/23 04/05/23 17:00 20:15 23:43 Temperature 37.0 C 37.0 C 36.9 C Heart Rate [ 91 80 82 Monitoring electrodes] Respiratory 16 16 16 Rate Blood Pressure 137/92 H 129/82 H 127/76 [Left Brachial artery] O2 Saturation 100 97 98 04/06/23 04/06/23 04/06/23 05:00 09:32 13:01 Temperature 36.9 C 37.4 C 37 C Heart Rate [ 82 86 100 Monitoring electrodes] Respiratory 16 20 22 Rate Blood Pressure 113/75 138/75 H 139/80 H [Left Brachial artery] O2 Saturation 99 99 99 Oxygen O2 Source Room air I&O (Last 24 Hrs): Intake and Output Totals x24h 04/04/23 04/05/23 04/06/23 23:59 23:59 23:59 Intake Total 480 2310.271 1960 Output Total 1800 1000 0 Balance -1320 4369.009 3470 General: Alert, Oriented x3 HEENT: Mucous membr. moist/pink Neck: Supple Neuro: Alert, Other (No tremor) Cardiovascular: Regular rate Respiratory: No respiratory distress Abdomen: No tenderness Extremities: No clubbing, No edema, No tenderness/swelling - Results Results: Laboratory Results WBC 5.6 x10^3/uL (4.8-10.8) 04/06/23 05:00 RBC 4.50 10^6/uL (4.70-6.10) L 04/06/23 05:00 Hgb 8.4 g/dL (14.0-18.0) L 04/06/23 05:00 Hct 30.5 % (42.0-52.0) L 04/06/23 05:00 MCV 67.8 fL (80.0-94.0) L 04/06/23 05:00 MCH 18.7 pg (27.0-31.0) L 04/06/23 05:00 MCHC 27.5 g/dL (32.0-36.0) L 04/06/23 05:00 RDW 22.3 % (12.0-15.0) H 04/06/23 05:00 Plt Count 254 10^3/uL (130-450) 04/06/23 05:00 MPV 9.7 fL (7.4-11.4) 04/06/23 05:00 Neut # (Auto) 5.3 10^3/uL (1.5-6.6) 04/02/23 11:48 Lymph # (Auto) 1.4 10^3/uL (1.5-3.5) L 04/02/23 11:48 [place] # (Auto) 1.0 10^3/uL (0.0-1.0) 04/02/23 11:48 Eos # (Auto) 0.0 10^3/uL (0.0-0.7) 04/02/23 11:48 Baso # (Auto) 0.1 10^3/uL (0.0-0.1) 04/02/23 11:48 Absolute Nucleated RBC 0.02 x10^3/uL 04/02/23 11:48 Nucleated RBC % 0.3 /100WBC 04/02/23 11:48 Manual Slide Review Indicated 04/02/23 11:48 RBC Morph Micro Appear 4+ ANISOCYTOSIS (NORMAL) 04/02/23 11:48 PT 11.7 secs (9.9-12.6) 04/02/23 11:48 INR 1.1 (0.8-1.2) 04/02/23 11:48 VBG pH 7.467 (7.31-7.41) H 04/04/23 04:23 Ionized Calcium 1.15 mmol/L (1.15-1.33) 04/04/23 04:23 Sodium 136 mmol/L (135-145) 04/06/23 05:00 Potassium 3.7 mmol/L (3.5-4.5) 04/06/23 05:00 Chloride 106 mmol/L (101-111) 04/06/23 05:00 Carbon Dioxide 23 mmol/L (21-32) 04/06/23 05:00 Anion Gap 7.0 (6-13) 04/06/23 05:00 BUN 7 mg/dL (6-20) 04/06/23 05:00 Creatinine 0.7 mg/dL (0.6-1.3) 04/06/23 05:00 Estimated GFR (MDRD) 122 (>89) 04/06/23 05:00 Glucose 106 mg/dL (74-104) H 04/06/23 05:00 Calcium 9.2 mg/dL (8.5-10.3) 04/06/23 05:00 Phosphorus 3.0 mg/dL (2.5-5.0) 04/04/23 04:23 Magnesium 2.1 mg/dL (1.7-2.3) 04/04/23 04:23 Iron 21 ug/dL (50-212) L 04/06/23 05:00 TIBC 533 ug/dL (250-450) H 04/06/23 05:00 % Saturation 4 % (20-50) L 04/06/23 05:00 Transferrin 381 mg/dL (203-362) H 04/06/23 05:00 Total Bilirubin 0.8 mg/dL (0.2-1.0) 04/06/23 05:00 AST 135 IU/L (10-42) H 04/06/23 05:00 ALT 127 IU/L (10-60) H 04/06/23 05:00 Alkaline Phosphatase 124 IU/L (42-121) H 04/06/23 05:00 Ammonia 53.9 umol/L (18-72) 04/04/23 04:23 Total Protein 7.2 g/dL (6.4-8.9) 04/06/23 05:00 Albumin 4.1 g/dL (3.2-5.5) 04/06/23 05:00 Globulin 3.1 g/dL (2.1-4.2) 04/06/23 05:00 Albumin/Globulin Ratio 1.3 (1.0-2.2) 04/06/23 05:00 Lipase 87 U/L (11-82) H 04/03/23 04:17 Vitamin B12 384 pg/mL (180-914) 04/04/23 04:22 Folate 25.5 ng/mL (5.90 - >24.8) 04/04/23 04:22 TSH 2.31 uIU/mL (0.34-5.60) 04/06/23 05:00 Free T4 Direct 1.05 ng/dL (0.58-1.64) 04/06/23 05:00 Urine Color LIGHT YELLOW 04/02/23 13:34 Urine Clarity CLEAR (CLEAR) 04/02/23 13:34 Urine pH 7.0 PH (5.0-7.5) 04/02/23 13:34 Ur Specific [place] 1.010 (1.002-1.030) 04/02/23 13:34 Urine Protein NEGATIVE mg/dL (NEGATIVE) 04/02/23 13:34 Urine Glucose (UA) NEGATIVE mg/dL (NEGATIVE) 04/02/23 13:34 Urine Ketones NEGATIVE mg/dL (NEGATIVE) 04/02/23 13:34 Urine Occult Blood TRACE-LYSE (NEGATIVE) 04/02/23 13:34 Urine Nitrite NEGATIVE (NEGATIVE) 04/02/23 13:34 Urine Bilirubin NEGATIVE (NEGATIVE) 04/02/23 13:34 Urine Urobilinogen 0.2 (NORMAL) E.U./dL (NORMAL) 04/02/23 13:34 Ur Leukocyte Esterase NEGATIVE (NEGATIVE) 04/02/23 13:34 Ur Microscopic Review NOT INDICATED 04/02/23 13:34 Urine Culture Comments NOT INDICATED 04/02/23 13:34 Nasal Screen MRSA (PCR) NEGATIVE (NEGATIVE) 04/02/23 19:30 Ethyl Alcohol < 10.0 mg/dL 04/04/23 04:23 Blood Type O POSITIVE 04/02/23 11:48 Blood Type Recheck O POSITIVE 04/02/23 13:04 Antibody Screen NEGATIVE 04/02/23 11:48
[2023-04-06] MEDS: ZOLPIDEM 5 MG TABLET PO SCH (20:23)
[2023-04-07] MEDS: SODIUM CHLORIDE FLUSH 0.9% 10 ML SYRINGE IVP SCH ×3 (00:23→15:31)
[2023-04-07] MEDS: chlordiazePOXIDE 5 MG CAPSULE PO SCH ×2 (06:02→13:56)
[2023-04-07] MEDS: PRENATAL VITAMIN TABLET PO SCH (08:03)
[2023-04-07] MEDS: FERROUS SULFATE 325 MG TABLET PO SCH (08:03)
[2023-04-07] MEDS: PANTOPRAZOLE 40 MG TABLET PO SCH (08:03)
[2023-04-07] MEDS: THIAMINE 100 MG TABLET PO SCH (08:04)
--- NOTE | 2023-04-07 13:08 | Discharge Plan ---
Discharge Plan Problem Reviewed?: Yes Disposition: Home, Self Care Condition: Fair Prescriptions: Zolpidem [Ambien] 5 - 10 mg PO HS PRN #15 tablet PRN Reason: Insomnia Ferrous Sulfate [Feosol] 325 mg PO DAILY #30 tab Pantoprazole [Protonix] 40 mg PO BID #40 tablet Thiamine [Vitamin B-1] 100 mg PO DAILY #30 tab Diet: Regular Activity Restrictions: Activity as Tolerated Shower Restrictions: No Driving Restrictions: Yes (No driving a car if you are drunk) Health Concerns: You were in the hospital to treat alcohol abuse and you had alcohol withdrawal and had vomited blood. You needed medicine started to treat the insomnia and the stomach bleeding and anemia. These medicines have been prescription for you to continue and were electronically sent to your [facility] pharmacy in [place]. You need to see a doctor for more refills of those medicines, and to evaluate why you have such severe insomnia. Plan of Treatment: Go to a Walk-In clinic or start seeing a doctor, to have more treatment. STOP drinking alcohol. Care Goals: Feeling better and being healthier are the goals of treatment. Assessment: This was translated for you into [place]ian. No Smoking: If you smoke, Please STOP! Call for help.
--- NOTE | 2023-04-07 13:17 | DISCHARGE SUMMARY ---
Discharge Summary Admit Date: 04/02/23 Discharge Date: 04/07/23 Discharging Provider: Dr Purnima Oakley Primary Care Provider: None Condition at Discharge: Fair Discharge Disposition: 01 Home, Self Care - HPI History of Present Illness: This is a 43-year-old male who speaks only Arabic. He has a history of alcohol use. In one of his answers to the general surgeon he implied that he has been drinking alcohol heavily for 9 months. He describes that over the past 5 to 7 days he has been binging alcohol in order to sleep otherwise has insomnia. He came to the ER requesting help to stop drinking and was noted to have bright red sputum or red clots in his emesis bag. The patient also was intoxicated with a serum alcohol level of 291. In the ED, his exam showed that he was tremulous alternating with confused and sleepy. He had no abdominal distention and no abdominal pain. His rectal exam showed brown, guaiac positive stool. Labs were remarkable for hemoglobin 8.7, low MCV, platelet count and INR normal. AST 142, ALT 94. Bilirubin normal, alk phos elevated. Lipase 92. Sodium 133, potassium 3.1. Normal BUN/creatinine. Blood pressure 137/71, heart rate sinus tach at 116. Patient was given a dose of IV phenobarb for possibly going into DTs. The ER provider spoke to the general surgeon who agreed he needed upper endoscopy, however since he is intoxicated he cannot give consent to have an EGD done today. The ED provider then spoke to me about this patient. He will be placed in Observation on the Hospitalist service to manage possible upper GI bleed, anemia with heme positive stool, alcohol intoxication with possible alcohol withdrawal. - HOSPITAL COURSE Hospital Course: (1) Alcohol withdrawal delirium He was hallucinating, delirious. He could not sign consent for EGD. No EGD was done. He was put on po Librium and prn iv Ativan for CIWA score. He was on a banana bag for hydration while NPO. He was then transitioned to daily po thiamine and vitamin, and his Librium was tapered down to off before discharge. (2) ETOH abuse He presented intoxicated but his first CIWA score was 19, thus he was placed in the ICU. Ativan prn and CIWA scoring ordered. He got banana bag iv hydration. When he spoke to social sciences lecturer Cristina, we obtained details about his alcohol abuse: He drinks up to 12 beers per night. The binge drinking was recent and he was doing it to manage insomnia. He did have elevated AST greater than ALT but had normal INR and platelets and bilirubin. He was discharged with scripts for oral Thiamine, MOV and received resources from social sciences lecturer regarding cessation of alcohol abuse (3) Insomnia Patient was seen by social sciences lecturer and using an science instructor tablet, he told SW he has had insomnia for 9 months and that his alcohol intake has gone up over that time and especially over the 5 days before admission, when he was binging in order to fall asleep. He was requesting management of insomnia. Ambien was ordered and an Ambien prescription was provided at time of discharge. (4) Upper GI bleeding There was a red substance in his emesis bag. Being a heavy alcohol drinker, at risk for bleeding varices or gastritis or an ulcer, a Gen Surg public relations consultant planned an EGD. He was treated with empiric IV Protonix BID and changed to Protonix po BID, which was prescribed at discharge. (5) Anemia His admission hemoglobin was 8.7 and decreased to 8 then plateaued. We presumed he had an upper GI bleed that was acute. I checked his B12 and folate levels which were WNL. His iron stores were low (saturation was 4%). He was put on daily oral Ferrous sulfate, to continue after discharge - ALLERGIES Allergies/Adverse Reactions: Allergies Allergy/AdvReac Type Severity Reaction Status Date / Time aspirin [From [place]] Allergy Rash Verified 04/02/23 11:20 citric acid Allergy Rash Verified 04/02/23 11:20 [From [place]] sodium bicarbonate Allergy Rash Verified 04/02/23 11:20 [From [place]] - MEDICATIONS Home Medications: Ambulatory Orders Medication Instructions Recorded Confirmed Ferrous Sulfate [Feosol] 325 mg PO DAILY #30 tab 04/07/23 Pantoprazole [Protonix] 40 mg PO BID #40 tablet 04/07/23 Thiamine [Vitamin B-1] 100 mg PO DAILY #30 tab 04/07/23 Zolpidem [Ambien] 5 - 10 mg PO HS PRN #15 tablet 04/07/23 - PHYSICAL EXAM AT DISCHARGE General Appearance: positive: No acute distress, Alert Eyes Bilateral: positive: Normal inspection, EOMI ENT: positive: ENT inspection nml, No signs of dehydration Neck: positive: Nml inspection, No JVD Respiratory: positive: No respiratory distress Cardiovascular: positive: Regular rate & rhythm, No murmur Abdomen: positive: Non-tender, No distention Skin: positive: Warm, Dry Extremities: positive: Non-tender, No pedal edema Neurologic/Psychiatric: positive: Oriented x3, Motor nml - LABS Result Diagrams: 04/06/23 05:00 04/06/23 05:00 - FOLLOW UP Follow Up: Needs to establish with a PCP. - TIME SPENT Time Spent in Discharge (Minutes): 35
[2023-04-07 16:20] VITALS: BP 135/77; O2SAT 99
== END 2023-04-07 18:29 | disposition home or self-care (01) ==
LOC: EDUNIT# → ED 11:09 → ICU 13:57 → MS2 04-06 16:26
PROVIDERS: ADMIT Internal Medicine; ATTEND Internal Medicine
DX: K92.0 Hematemesis (principal); F10.129 Alcohol abuse with intoxication, unspecified; F10.131 Alcohol abuse with withdrawal delirium; D64.9 Anemia, unspecified; G47.00 Insomnia, unspecified; F17.200 Nicotine dependence, unspecified, uncomplicated; F32.A Depression, unspecified; F41.9 Anxiety disorder, unspecified; E66.9 Obesity, unspecified; R00.0 Tachycardia, unspecified; R10.9 Unspecified abdominal pain; R74.01 Elevation of levels of liver transaminase levels; Z68.34 Body mass index [BMI] 34.0-34.9, adult
CPT/HCPCS: 36415; 80053; 80320; 81003; 82140; 82272; 82330; 82607; 82746; 83540; 83690; 83735; 84100; 84132; 84439; 84443; 84466; 85018; 85025; 85027; 85610; 86850; 86900; 86901; 87150; 96361; 96365; 96366; 96367; 96375; 99285; A9270; G0378; J2060; J3411; 81001; 87086

== ENCOUNTER 2023-12-30 12:07 | Outpatient (CLI) | payer SELFPAY | END 2023-12-30 23:59 | disposition critical access hospital (66) | LOC: EMS 12:07 | DX: R25.1 Tremor, unspecified (principal); R19.7 Diarrhea, unspecified; R42 Dizziness and giddiness; R00.0 Tachycardia, unspecified; R06.82 Tachypnea, not elsewhere classified; R61 Generalized hyperhidrosis; R03.0 Elevated blood-pressure reading, without diagnosis of hypertension; F10.10 Alcohol abuse, uncomplicated | CPT/HCPCS: A0425; A0427 ==

== ENCOUNTER 2023-12-30 12:31 | Emergency (ER) | payer SELFPAY ==
[2023-12-30] MEDS: PHENobarbital 65 MG/ML VIAL IV STA (12:48)
--- NOTE | 2023-12-30 12:50 | ED Physician Documentation ---
History of Present Illness - Stated complaint Stated Complaint: ETOH WITHDRAWL - Chief complaint Chief Complaint: General - History obtained from History obtained from: Patient, EMS - Additonal information Additional information: 43-year-old male presents by EMS for possible alcohol withdrawal. Patient states that he drinks 1-3 shots of alcohol nightly to help him sleep, otherwise he has bad insomnia. Last drink was a shot of alcohol last night. He was noted to be tremulous and ill-appearing at his worksite and he was transported by EMS to the emergency department. Patient is requesting resources for detox or rehab. Denies other medical history. Review of Systems Constitutional: denies: Fever, Chills Cardiac: denies: Chest pain / pressure, Palpitations, Calf pain GI: reports: Nausea, Vomiting. denies: Abdominal Pain Musculoskeletal: denies: Neck pain, Back pain, Extremity pain Neurologic: reports: Generalized weakness. denies: Focal weakness, Numbness, Difficulty speaking PD PAST MEDICAL HISTORY - Past Medical History Past Medical History: Yes Cardiovascular: None Respiratory: None Neuro: None Endocrine/Autoimmune: Type 1 diabetes GI: Other : None HEENT: None Psych: Depression, Anxiety Musculoskeletal: None Derm: None - Past Surgical History Past Surgical History: No General: Other - Present Medications Home Medications: Ambulatory Orders Medication Instructions Recorded Confirmed Ferrous Sulfate [Feosol] 325 mg PO DAILY #30 tab 04/07/23 Pantoprazole [Protonix] 40 mg PO BID #40 tablet 04/07/23 Thiamine [Vitamin B-1] 100 mg PO DAILY #30 tab 04/07/23 Zolpidem [Ambien] 5 - 10 mg PO HS PRN #15 tablet 04/07/23 chlordiazePOXIDE [Librium] 25 mg PO Q6H #15 cap 12/30/23 - Allergies Allergies/Adverse Reactions: Allergies Allergy/AdvReac Type Severity Reaction Status Date / Time aspirin [From [place]] Allergy Rash Verified 12/30/23 12:43 citric acid Allergy Rash Verified 12/30/23 12:43 [From [place]] sodium bicarbonate Allergy Rash Verified 12/30/23 12:43 [From [place]] - Social History Does the pt smoke?: Yes Smoking Status: Current every day smoker Does the pt drink ETOH?: Yes ETOH Use: Liquor Does the pt have substance abuse?: Yes PD ED PE NORMAL - Vitals Vital signs reviewed: Yes - General General: Alert and oriented X 3, Well developed/nourished, Other (Tremulous) - Neck Neck: Supple, no meningeal sign - Cardiac Cardiac: RRR, Strong equal pulses - Respiratory Respiratory: No respiratory distress, Clear bilaterally - Abdomen Abdomen: Soft, Non tender, Non distended - Derm Derm: Normal color, Warm and dry, No rash - Neuro Neuro: Alert and oriented X 3, fine arts teacher 2-12 intact, No motor deficit, Normal speech - Psych Psych: Normal affect, Other (mildly anxious) Results - Vitals Vitals: Vital Signs - 24 hr 12/30/23 12/30/23 12/30/23 12:37 14:43 16:43 Temperature 36.6 C Heart Rate 89 79 89 Respiratory 16 24 26 H Rate Blood Pressure 126/81 H 117/78 119/69 O2 Saturation 100 97 98 12/30/23 18:00 Temperature Heart Rate 98 Respiratory 22 Rate Blood Pressure 108/69 O2 Saturation 98 Oxygen O2 Source Room air - Labs Labs: Laboratory Tests 12/30/23 12/30/23 12:44 12:44 WBC 6.3 RBC 3.82 L Hgb 9.2 L Hct 28.4 L MCV 74.3 L MCH 24.1 L MCHC 32.4 RDW 21.6 H Plt Count 113 L MPV 10.2 Neut # (Auto) 4.9 Lymph # (Auto) 0.4 L [place] # (Auto) 0.8 Eos # (Auto) 0.0 Baso # (Auto) 0.0 Absolute Nucleated RBC 0.00 Nucleated RBC % 0.0 Sodium 124 L Potassium 2.3 L* Chloride 86 L Carbon Dioxide 28 Anion Gap 10.0 BUN 13 Creatinine 0.6 Estimated GFR (MDRD) 146 Glucose 170 H Calcium 9.5 Magnesium 1.2 L Total Bilirubin 1.1 H AST 169 H ALT 116 H Alkaline Phosphatase 101 Total Protein 7.7 Albumin 4.6 Globulin 3.1 Albumin/Globulin Ratio 1.5 Lipase 542 H Ethyl Alcohol < 10.0 PD Medical Decision Making - ED course Complexity details: reviewed results, re-evaluated patient, considered differential, d/w patient, other (d/w CARDIOLOGY TECHNICIAN) ED course: Nausea, vomiting, alcohol withdrawal. Last drink nearly 12 hours ago. Patient is mildly tremulous but not tachycardic or diaphoretic. Laboratory work ordered, phenobarbital ordered. Laboratory work is significant for hypokalemia (2.3) and hypomagnesemia (1.2). Also with mild anemia (9.2) and mild elevation in liver enzymes with T. bili 1.1. These were repleted with oral potassium and IV magnesium. After receiving phenobarbital patient resting comfortably in bed, no complaints, no acute distress, tolerating PO without difficulty or further episodes of emesis. Patient does not have healthcare insurance and is [place]-speaking only, electromedical service engineer was able to evaluate the patient at bedside using parking lot spotter service and arrange for resources for rehab. Patient sent home with Librium taper for symptoms and has information packet on detox and how to get to detox and [facility]. Departure - Departure Disposition: 01 Home, Self Care Clinical Impression: Alcohol use disorder, mild, abuse, Hypokalemia, Hypomagnesemia Condition: Stable Instructions: Alcoholism, Hypokalemia Dc Prescriptions: chlordiazePOXIDE [Librium] 25 mg PO Q6H #15 cap Print Language: [place] Forms: PCP List Discharge Date/Time: 12/30/23 18:01
[2023-12-30 12:51] LABS: BASOPHILS % (AUTO) 0.6 %; EOSINOPHILS % (AUTO) 0.3 %; HCT - HEMATOCRIT 28.4 % (42.0-52.0); HGB - HEMOGLOBIN 9.2 g/dL (14.0-18.0); LYMPHOCYTES # (AUTO) 0.4 10^3/uL (1.5-3.5); LYMPHOCYTES % (AUTO) 6.9 %; MEAN CORPUSCULAR HEMOGLOBIN 24.1 pg (27.0-31.0); MEAN CORPUSCULAR HGB CONC 32.4 g/dL (32.0-36.0); MEAN CORPUSCULAR VOLUME 74.3 fL (80.0-94.0); MEAN PLATELET VOLUME 10.2 fL (7.4-11.4); MONOCYTES # (AUTO) 0.8 10^3/uL (0.0-1.0); MONOCYTES % (AUTO) 12.5 %; NEUTROPHILS # (AUTO) 4.9 10^3/uL (1.5-6.6); NEUTROPHILS % (AUTO) 78.6 %; PLT - PLATELET COUNT 113 10^3/uL (130-450); RED BLOOD COUNT 3.82 10^6/uL (4.70-6.10); RED CELL DISTRIBUTION WIDTH 21.6 % (12.0-15.0); WHITE BLOOD COUNT 6.3 x10^3/uL (4.8-10.8)
[2023-12-30] MEDS: SODIUM CHLORIDE 0.9% 1,000 ML IV STA (13:00)
[2023-12-30 13:03] LABS: ETOH - ETHANOL < 10.0 mg/dL; LIPASE 542 U/L (11-82); MAGNESIUM 1.2 mg/dL (1.7-2.3)
[2023-12-30 13:06] LABS: ALBUMIN 4.6 g/dL (3.2-5.5); ALBUMIN/GLOBULIN RATIO 1.5 (1.0-2.2); ALKALINE PHOSPHATASE 101 IU/L (42-121); ALT ALANINE AMINOTRANSFERASE 116 IU/L (10-60); AST ASPARTATE AMINOTRANSFERASE 169 IU/L (10-42); BILIRUBIN,TOTAL 1.1 mg/dL (0.2-1.0); BUN - BLOOD UREA NITROGEN 13 mg/dL (6-20); CALCIUM 9.5 mg/dL (8.5-10.3); CARBON DIOXIDE - CO2 28 mmol/L (21-32); CHLORIDE 86 mmol/L (101-111); CREATININE 0.6 mg/dL (0.6-1.3); GFR - MDRD 146 (>89); GLUCOSE 170 mg/dL (74-104); POTASSIUM 2.3 mmol/L (3.5-4.5); SODIUM 124 mmol/L (135-145); TOTAL PROTEIN 7.7 g/dL (6.4-8.9)
[2023-12-30] MEDS: POTASSIUM CHLORIDE 20 MEQ TABLET PO STA (13:30)
[2023-12-30] MEDS: ONDANSETRON 4 MG/2 ML VIAL IVP STA (13:30)
[2023-12-30] MEDS: MAGNESIUM SULFATE 2 GRAM 2 GM/50 ML BAG IV ONE (13:31)
[2023-12-30 17:00] VITALS: O2SAT 98
[2023-12-30 18:07] VITALS: BP 108/69
== END 2023-12-30 18:01 | disposition home or self-care (01) ==
LOC: EDBD → EDUNIT# → ED 12:31
DX: F10.139 Alcohol abuse with withdrawal, unspecified (principal); Y90.0 Blood alcohol level of less than 20 mg/100 ml; E87.6 Hypokalemia; E83.42 Hypomagnesemia; F17.200 Nicotine dependence, unspecified, uncomplicated; Z59.7 Insufficient social insurance and welfare support
CPT/HCPCS: 36415; 80053; 82077; 83690; 83735; 85025; 93005; 96365; 96375; 99284; A9270; J2560

== ENCOUNTER 2024-01-13 07:54 | Emergency (ER) | payer SELFPAY ==
[2024-01-13 09:13] LABS: BASOPHILS # (AUTO) 0.2 10^3/uL (0.0-0.1); BASOPHILS % (AUTO) 1.8 %; EOSINOPHILS % (AUTO) 0.2 %; HGB - HEMOGLOBIN 9.7 g/dL (14.0-18.0); LYMPHOCYTES # (AUTO) 0.8 10^3/uL (1.5-3.5); LYMPHOCYTES % (AUTO) 9.9 %; MEAN CORPUSCULAR HEMOGLOBIN 23.4 pg (27.0-31.0); MEAN CORPUSCULAR HGB CONC 30.3 g/dL (32.0-36.0); MEAN CORPUSCULAR VOLUME 77.1 fL (80.0-94.0); MEAN PLATELET VOLUME 9.4 fL (7.4-11.4); MONOCYTES # (AUTO) 0.8 10^3/uL (0.0-1.0); MONOCYTES % (AUTO) 9.9 %; NEUTROPHILS # (AUTO) 6.4 10^3/uL (1.5-6.6); PLT - PLATELET COUNT 601 10^3/uL (130-450); RED BLOOD COUNT 4.15 10^6/uL (4.70-6.10); WHITE BLOOD COUNT 8.2 x10^3/uL (4.8-10.8)
[2024-01-13 09:15] LABS: RBC MORPHOLOGY (MULTIPLE) 4+ ANISOCYTOSIS (NORMAL); SLIDE REVIEW? Indicated
[2024-01-13] MEDS: LORazepam 2 MG/ML VIAL IVP STA ×2 (09:28→13:05)
[2024-01-13 09:29] LABS: ALBUMIN 4.6 g/dL (3.2-5.5); ALBUMIN/GLOBULIN RATIO 1.3 (1.0-2.2); ALKALINE PHOSPHATASE 112 IU/L (42-121); ALT ALANINE AMINOTRANSFERASE 131 IU/L (10-60); AST ASPARTATE AMINOTRANSFERASE 100 IU/L (10-42); BILIRUBIN,TOTAL 0.4 mg/dL (0.2-1.0); BUN - BLOOD UREA NITROGEN 8 mg/dL (6-20); CALCIUM 9.5 mg/dL (8.5-10.3); CARBON DIOXIDE - CO2 25 mmol/L (21-32); CHLORIDE 100 mmol/L (101-111); CREATININE 0.6 mg/dL (0.6-1.3); ETOH - ETHANOL < 10.0 mg/dL; GFR - MDRD 146 (>89); GLUCOSE 139 mg/dL (74-104); LIPASE 105 U/L (11-82); MAGNESIUM 1.6 mg/dL (1.7-2.3); POTASSIUM 3.8 mmol/L (3.5-4.5); SODIUM 133 mmol/L (135-145); TOTAL PROTEIN 8.1 g/dL (6.4-8.9)
--- NOTE | 2024-01-13 09:30 | ED Physician Documentation ---
History of Present Illness - Stated complaint Stated Complaint: GEN WEAKNESS,FINGERS NUMB - Chief complaint Chief Complaint: General - History obtained from History obtained from: Patient, Other ([facility] agent) - History of Present Illness Timing: How many weeks ago (1) - Additonal information Additional information: The patient is a poor historian and even with the use of an adoption agent his answers to the adoption agent appear to be fragmented and sometimes incomprehensible. The patient is concerned about the shakes that he has and his difficulty walking. He has a history of continuous alcohol use which he relates to having difficulty sleeping at night. He feels worse when he is not drinking. He was seen in the emergency department and prescribed medication for withdrawal 2 weeks ago. He did not fill that prescription. He has come to the emergency department today at the insistence of his boss who noted him having some difficulty walking. Review of Systems Constitutional: denies: Fever Eyes: denies: Decreased vision Ears: denies: Ear pain Nose: denies: Rhinorrhea / runny nose, Congestion Throat: denies: Sore throat Cardiac: denies: Chest pain / pressure Respiratory: denies: Dyspnea, Cough GI: reports: Abdominal Pain, Nausea, Vomiting : denies: Dysuria, Frequency Skin: denies: Rash Musculoskeletal: denies: Neck pain, Back pain, Extremity pain PD PAST MEDICAL HISTORY - Past Medical History Past Medical History: Yes Cardiovascular: None Respiratory: None Neuro: None Endocrine/Autoimmune: Type 2 diabetes GI: Other : None HEENT: None Psych: Depression, Anxiety Musculoskeletal: None Derm: None - Past Surgical History Past Surgical History: Yes General: Other - Present Medications Home Medications: Ambulatory Orders Medication Instructions Recorded Confirmed chlordiazePOXIDE [Librium] 25 mg PO Q6H #15 cap 12/30/23 chlordiazePOXIDE [Librium] 25 mg PO Q6H #15 cap 01/13/24 - Allergies Allergies/Adverse Reactions: Allergies Allergy/AdvReac Type Severity Reaction Status Date / Time aspirin [From [place]] Allergy Rash Verified 01/13/24 07:58 citric acid Allergy Rash Verified 01/13/24 07:58 [From [place]] sodium bicarbonate Allergy Rash Verified 01/13/24 07:58 [From [facility]] - Social History Does the pt smoke?: Yes Smoking Status: Current some day smoker Does the pt drink ETOH?: Yes ETOH Use: Liquor Does the pt have substance abuse?: Yes - POLST Patient has POLST: No PD ED PE NORMAL - Vitals Vital signs reviewed: Yes (Tachycardia and hypertension.) - General General: Alert and oriented X 3, Well developed/nourished, Other (The patient is tremulous consistent with alcohol withdrawal as are his vital signs.) - HEENT HEENT: Atraumatic, PERRL, EOMI - Neck Neck: Supple, no meningeal sign, No bony TTP - Cardiac Cardiac: No murmur, Other (Tachycardia to 110) - Respiratory Respiratory: No respiratory distress, Clear bilaterally - Abdomen Abdomen: Soft, Non tender - Back Back: No CVA TTP, No spinal TTP - Derm Derm: Normal color, Warm and dry, No rash - Extremities Extremities: No deformity, No edema - Neuro Neuro: Alert and oriented X 3, 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, No motor deficit, Normal speech Eye Opening: Spontaneous Motor: Obeys Commands Verbal: Oriented GCS Score: 15 - Psych Psych: Normal mood, Other (Affect is flat) Results - Vitals Vitals: Vital Signs - 24 hr 01/13/24 01/13/24 07:58 10:09 Temperature 37 C Heart Rate 114 H 91 Respiratory 24 17 Rate Blood Pressure 144/85 H 130/80 O2 Saturation 100 95 Oxygen O2 Source Room air - Labs Labs: Laboratory Tests 01/13/24 01/13/24 01/13/24 09:02 09:02 11:56 WBC 8.2 RBC 4.15 L Hgb 9.7 L Hct 32.0 L MCV 77.1 L MCH 23.4 L MCHC 30.3 L RDW 22.0 H Plt Count 601 H MPV 9.4 Neut # (Auto) 6.4 Lymph # (Auto) 0.8 L [place] # (Auto) 0.8 Eos # (Auto) 0.0 Baso # (Auto) 0.2 H Absolute Nucleated RBC 0.00 Nucleated RBC % 0.0 Manual Slide Review Indicated RBC Morph Micro Appear 4+ ANISOCYTOSIS Sodium 133 L Potassium 3.8 Chloride 100 L Carbon Dioxide 25 Anion Gap 8.0 BUN 8 Creatinine 0.6 Estimated GFR (MDRD) 146 Glucose 139 H Calcium 9.5 Magnesium 1.6 L Total Bilirubin 0.4 AST 100 H ALT 131 H Alkaline Phosphatase 112 Total Protein 8.1 Albumin 4.6 Globulin 3.5 Albumin/Globulin Ratio 1.3 Lipase 105 H Urine Color YELLOW Urine Clarity CLEAR Urine pH 7.0 Ur Specific [place] 1.020 Urine Protein NEGATIVE Urine Glucose (UA) NEGATIVE Urine Ketones NEGATIVE Urine Occult Blood NEGATIVE Urine Nitrite NEGATIVE Urine Bilirubin NEGATIVE Urine Urobilinogen 1 (NORMAL) Ur Leukocyte Esterase NEGATIVE Ur Microscopic Review NOT INDICATED Urine Culture Comments NOT INDICATED Urine Opiates Screen NEGATIVE Ur Buprenorphine Scrn NEGATIVE Ur Oxycodone Screen NEGATIVE Urine Methadone Screen NEGATIVE Ur Barbiturates Screen POSITIVE H Ur Tricyclics Screen NEGATIVE Ur Phencyclidine Scrn NEGATIVE Ur Amphetamine Screen NEGATIVE U Methamphetamines Scrn NEGATIVE U Benzodiazepines Scrn POSITIVE H Urine Cocaine Screen NEGATIVE U Cannabinoids Screen NEGATIVE Ur Drug Screen Comment CUTOFF CONC BELOW: Ethyl Alcohol < 10.0 Procedures - IVC sono (time) 0845 Bedside IVC sono: IVC measures (cm) (1.1), IVC collapsed c insp (cm) (complete), Dehydration (more than one liter) PD Medical Decision Making - ED course Complexity details: reviewed old records, reviewed results, re-evaluated patient, considered differential, d/w patient Reviewed Lab Results: We reviewed a complete blood cell count showing a normal white blood cell count hemoglobin and hematocrit were both depressed at 9.7 and 32.0 and both of these are in the patient's prior range over the past year. Platelet count was elevated at 601 and this is different for the patient. Patient's electrolytes today show a serum sodium low at 133 and a normal potassium at 3.8 chloride is low at 100. BUN and creatinine are normal. The patient's prior chemistries showed hypokalemia and marked hyponatremia. This is much improved today. AST is elevated at 100 similar to prior magnesium low at 1.6 improved from prior at 1.2 AST and ALT similar to prior mildly elevated urinalysis unremarkable toxicology shows positive for barbiturates and benzodiazepines and ethyl alcohol less than 10. My interpretation of these results are the patient is much improved from his prior visit to the emergency department laboratories are still consistent with a problem with alcohol. ED course: 42-year-old Troy Darby presents to the emergency department this morning with difficulty walking and the shakes. I did ambulate the patient in the department he is able to ambulate without an ataxic gait. He is administered Ativan banana bag on arrival to the emergency department as well as 2 mg of Ativan. The social contact worker was consulted in the case and she has been able to provide some follow-up resources for the patient. 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 Today we will represcribe his Librium taper and asked him to abstain from alcohol. Resources have been provided. Departure - Departure Disposition: 01 Home, Self Care Clinical Impression: ETOH abuse, Hypomagnesemia Alcohol withdrawal Qualifiers: Complication of substance-induced condition: with unspecified complication Qualified Code(s): F10.939 - Alcohol use, unspecified with withdrawal, unspecified Condition: Stable Instructions: ED Withdrawal Alcohol Prescriptions: chlordiazePOXIDE [Librium] 25 mg PO Q6H #15 cap Comments: Troy, today it looks like you are having some issue with alcohol withdrawal again. Alcohol withdrawal will be much more comfortable with use of medication. I have E scribed this medication to the [facility] in [place]. Follow the instructions of the social contact worker for for their assistance with alcohol use disorder. Forms: PCP List
[2024-01-13] MEDS: THIAMINE INJ 100 MG, MAGNESIUM SULFATE 2 GM, MULTIVITAMIN 10 ML, FOLIC ACID INJ 1 MG in... IV STA (09:42)
[2024-01-13 11:10] VITALS: BP 130/80
[2024-01-13 12:10] LABS: BILIRUBIN,URINE NEGATIVE (NEGATIVE); GLUCOSE, URINE (UA) NEGATIVE (NEGATIVE); KETONES,URINE (UA) NEGATIVE (NEGATIVE); LEUKOCYTE ESTERASE, URINE NEGATIVE (NEGATIVE); NITRITE,URINE NEGATIVE (NEGATIVE); OCCULT BLOOD,URINE NEGATIVE (NEGATIVE); PROTEIN,URINE NEGATIVE (NEGATIVE); UROBILINOGEN,URINE 1 (NORMAL) E.U./dL (NORMAL)
[2024-01-13 12:15] LABS: CLARITY,URINE CLEAR (CLEAR)
[2024-01-13 12:23] LABS: AMPHETAMINE SCREEN,URINE NEGATIVE (NEGATIVE); BENZODIAZEPINES SCREEN, URINE POSITIVE (NEGATIVE); COCAINE SCREEN URINE NEGATIVE (NEGATIVE); METHAMPHETAMINES SCREEN, URINE NEGATIVE (NEGATIVE); OPIATE SCREEN, URINE NEGATIVE (NEGATIVE); THC CANNABINOID SCREEN, URINE NEGATIVE (NEGATIVE)
[2024-01-13 12:24] LABS: BARBITURATE SCREEN,UR POSITIVE (NEGATIVE); BUPRENORPHINE SCREEN, URINE NEGATIVE (NEGATIVE); METHADONE SCREEN, URINE NEGATIVE (NEGATIVE); OXYCODONE SCREEN, URINE NEGATIVE (NEGATIVE); TRICYCLIC ANTIDEPRESSANT,URINE NEGATIVE (NEGATIVE)
[2024-01-13 15:19] VITALS: O2SAT 99
== END 2024-01-13 15:17 | disposition home or self-care (01) ==
LOC: ED 07:54
DX: F10.139 Alcohol abuse with withdrawal, unspecified (principal); E83.42 Hypomagnesemia; D64.9 Anemia, unspecified; E87.1 Hypo-osmolality and hyponatremia; E87.6 Hypokalemia; R74.01 Elevation of levels of liver transaminase levels; R26.2 Difficulty in walking, not elsewhere classified; E86.0 Dehydration
CPT/HCPCS: 36415; 80053; 80306; 81003; 82077; 83690; 83735; 85025; 96365; 96375; 99284; J2060; J3411; 81001; 87086

== ENCOUNTER 2024-03-09 21:56 | Outpatient (CLI) | payer SELFPAY | END 2024-03-09 21:57 | disposition critical access hospital (66) | LOC: EMS 21:56 | DX: R53.1 Weakness (principal); R26.2 Difficulty in walking, not elsewhere classified; R51.9 Headache, unspecified; R42 Dizziness and giddiness; R11.0 Nausea; F10.90 Alcohol use, unspecified, uncomplicated | CPT/HCPCS: A0425; A0429 ==

== ENCOUNTER 2024-03-09 22:17 | Emergency (ER) | payer SELFPAY ==
[2024-03-09 22:42] LABS: BASOPHILS # (AUTO) 0.1 10^3/uL (0.0-0.1); BASOPHILS % (AUTO) 1.8 %; EOSINOPHILS # (AUTO) 0.2 10^3/uL (0.0-0.7); EOSINOPHILS % (AUTO) 2.9 %; HCT - HEMATOCRIT 34.8 % (42.0-52.0); HGB - HEMOGLOBIN 10.6 g/dL (14.0-18.0); LYMPHOCYTES # (AUTO) 3.6 10^3/uL (1.5-3.5); LYMPHOCYTES % (AUTO) 49.4 %; MEAN CORPUSCULAR HEMOGLOBIN 24.1 pg (27.0-31.0); MEAN CORPUSCULAR HGB CONC 30.5 g/dL (32.0-36.0); MEAN CORPUSCULAR VOLUME 79.1 fL (80.0-94.0); MEAN PLATELET VOLUME 10.1 fL (7.4-11.4); MONOCYTES # (AUTO) 0.3 10^3/uL (0.0-1.0); MONOCYTES % (AUTO) 4.1 %; NEUTROPHILS % (AUTO) 41.5 %; PLT - PLATELET COUNT 307 10^3/uL (130-450); RED CELL DISTRIBUTION WIDTH 22.6 % (12.0-15.0); WHITE BLOOD COUNT 7.2 x10^3/uL (4.8-10.8)
[2024-03-09 22:59] LABS: ACETAMINOPHEN 0.2 ug/mL; ALBUMIN 3.9 g/dL (3.2-5.5); ALKALINE PHOSPHATASE 116 IU/L (42-121); ALT ALANINE AMINOTRANSFERASE 57 IU/L (10-60); AST ASPARTATE AMINOTRANSFERASE 144 IU/L (10-42); BILIRUBIN,TOTAL 0.4 mg/dL (0.2-1.0); BUN - BLOOD UREA NITROGEN 4 mg/dL (6-20); CALCIUM 8.2 mg/dL (8.5-10.3); CARBON DIOXIDE - CO2 22 mmol/L (21-32); CHLORIDE 107 mmol/L (101-111); CREATININE 0.5 mg/dL (0.6-1.3); ETOH - ETHANOL 388.9 mg/dL; GFR - MDRD 179 (>89); GLUCOSE 97 mg/dL (74-104); LIPASE 45 U/L (11-82); MAGNESIUM 1.7 mg/dL (1.7-2.3); POTASSIUM 3.1 mmol/L (3.5-4.5); SODIUM 141 mmol/L (135-145); TOTAL PROTEIN 7.8 g/dL (6.4-8.9)
[2024-03-09 23:05] LABS: SALICYLATE < 1.5 mg/dL
[2024-03-09 23:11] LABS: THYROID STIMULATING HORMONE 2.83 uIU/mL (0.34-5.60)
--- NOTE | 2024-03-10 00:03 | ED Physician Documentation ---
History of Present Illness - Stated complaint Stated Complaint: WEAKNESS - Chief complaint Chief Complaint: General - History obtained from History obtained from: Patient - Additonal information Additional information: BIBA. HPI from patient; patient is Vietnamese-speaking only and thus [employer] translation services are utilized for this HPI/ROS. Patient's chief complaint is dizziness, but also says he is having nausea without vomiting and generalized malaise. Patient says he has had the symptoms episodically over the past 2 years. PD PAST MEDICAL HISTORY - Past Medical History Past Medical History: Yes Cardiovascular: None Respiratory: None Neuro: None Endocrine/Autoimmune: Type 2 diabetes GI: Other : None HEENT: None Psych: Depression, Anxiety Musculoskeletal: None Derm: None - Past Surgical History Past Surgical History: Yes General: Other - Present Medications Home Medications: Ambulatory Orders Medication Instructions Recorded Confirmed chlordiazePOXIDE [Librium] 25 mg PO Q6H #15 cap 12/30/23 chlordiazePOXIDE [Librium] 25 mg PO Q6H #15 cap 01/13/24 Ondansetron Odt [Zofran Odt] 4 mg TL Q6H PRN #10 tablet 03/10/24 - Allergies Allergies/Adverse Reactions: Allergies Allergy/AdvReac Type Severity Reaction Status Date / Time aspirin [From [place]] Allergy Rash Verified 03/09/24 22:22 citric acid Allergy Rash Verified 03/09/24 22:22 [From [place]] sodium bicarbonate Allergy Rash Verified 03/09/24 22:22 [From [facility]] - Social History Does the pt smoke?: Yes Smoking Status: Current every day smoker Does the pt drink ETOH?: Yes Does the pt have substance abuse?: Yes - POLST Patient has POLST: No PD ED PE NORMAL - Vitals Vital signs reviewed: Yes - General General: Alert and oriented X 3, No acute distress, Well developed/nourished - Cardiac Cardiac: RRR, No murmur - Respiratory Respiratory: No respiratory distress, Clear bilaterally - Abdomen Abdomen: Soft, Non tender - Derm Derm: Normal color, Warm and dry Results - Vitals Vitals: Vital Signs - 24 hr 03/09/24 03/09/24 03/10/24 22:19 22:22 00:21 Temperature 36.7 C Heart Rate 78 71 66 Respiratory 18 16 Rate Blood Pressure 126/73 112/61 O2 Saturation 97 97 03/10/24 02:00 Temperature Heart Rate 70 Respiratory 18 Rate Blood Pressure 113/66 O2 Saturation 98 Oxygen O2 Source Room air - Labs Labs: Laboratory Tests 03/09/24 03/09/24 22:37 22:37 WBC 7.2 RBC 4.40 L Hgb 10.6 L Hct 34.8 L MCV 79.1 L MCH 24.1 L MCHC 30.5 L RDW 22.6 H Plt Count 307 MPV 10.1 Neut # (Auto) 3.0 Lymph # (Auto) 3.6 H [place] # (Auto) 0.3 Eos # (Auto) 0.2 Baso # (Auto) 0.1 Absolute Nucleated RBC 0.00 Nucleated RBC % 0.0 Platelet Estimate NORMAL (130-450,000) Platelet Morphology NORMAL APPEARANCE RBC Morph Micro Appear 1+ HYPOCHROMASIA Sodium 141 Potassium 3.1 L Chloride 107 Carbon Dioxide 22 Anion Gap 12.0 BUN 4 L Creatinine 0.5 L Estimated GFR (MDRD) 179 Glucose 97 Calcium 8.2 L Magnesium 1.7 Total Bilirubin 0.4 AST 144 H ALT 57 Alkaline Phosphatase 116 Total Protein 7.8 Albumin 3.9 Globulin 3.9 Albumin/Globulin Ratio 1.0 Lipase 45 TSH 2.83 Salicylates < 1.5 Acetaminophen 0.2 Ethyl Alcohol 388.9 PD Medical Decision Making - ED course Complexity details: reviewed results, re-evaluated patient, considered differential, d/w patient ED course: Hemoglobin 10.6 on otherwise unremarkable CBC (indices are low including MCV, MCH, MCHC). Mild hypokalemia (3.1) on otherwise unremarkable ER abdominal panel. Serum ethanol level is markedly elevated (389). Results discussed with patient. He is in NAD. He is given 40 mg Protonix p.o., Mylanta with viscous lidocaine, 20 mEq of potassium chloride, and 4 mg TL Zofran. Advised him of his lab results including the high alcohol/ethanol level. I advised him that his heavy/regular alcohol intake is likely causing his symptoms. He is provided with a prescription for Zofran as well as information for [facility] should he wish to seek inpatient detox/rehab for his alcoholism. Departure - Departure Disposition: 01 Home, Self Care Clinical Impression: Alcoholism, Hypokalemia Condition: Good Instructions: ED Alcohol Intoxication, ED Potassium Deficiency, ED Alcohol Abuse Prescriptions: Ondansetron Odt [Zofran Odt] 4 mg TL Q6H PRN #10 tablet PRN Reason: Nausea / Vomiting Print Language: Vietnamese Comments: Your blood alcohol level was very high tonight. Regular and heavy alcohol use could account for your symptoms (abdominal discomfort, nausea, weakness and dizziness). Eventually, heavy and regular alcohol intake causes irreversible damage to the liver. You need to quit drinking alcohol completely as soon as possible to prevent permanent damage. This can be very difficult to do without professional help, and I encourage you to contact your primary care provider soon as their office is open to arrange for the next available appointment to discuss options for treatment of your alcoholism. If you are interested in inpatient detox/rehab, another option is the [facility] in [place]. [address] The [facility] offers a monitored and safe setting for individuals withdrawing from alcohol and drugs, and counseling for individuals experiencing a mental health crisis. All services are provided in a 10-bed facility where intensive medical monitoring is required along with stabilization services. The goal of these services is to assess a clients mental health and substance use disorder related needs, and assist them in accessing the services they need to recover. Forms: PCP List Discharge Date/Time: 03/10/24 02:10
[2024-03-10 00:23] LABS: PLATELET ESTIMATE, MANUAL NORMAL (130-450,000) (NORMAL); PLATELET MORPHOLOGY NORMAL APPEARANCE (NORMAL)
[2024-03-10] MEDS: MAG HYDROX/AL HYDROX/SIMETH 30 ML UDC PO STA (02:00)
[2024-03-10] MEDS: PANTOPRAZOLE 40 MG TABLET PO STA (02:00)
[2024-03-10] MEDS: POTASSIUM CHLORIDE 20 MEQ TABLET PO STA (02:00)
[2024-03-10] MEDS: ONDANSETRON ODT 4 MG TABLET TL STA (02:00)
[2024-03-10] MEDS: LIDOCAINE VISCOUS 2% 15 ML UDC MM STA (02:01)
[2024-03-10 02:10] VITALS: BP 113/66; O2SAT 98
== END 2024-03-10 02:10 | disposition home or self-care (01) ==
LOC: EDUNIT# → EDBD → ED 22:17
DX: F10.20 Alcohol dependence, uncomplicated (principal); Y90.8 Blood alcohol level of 240 mg/100 ml or more; E87.6 Hypokalemia; E11.9 Type 2 diabetes mellitus without complications; F17.200 Nicotine dependence, unspecified, uncomplicated
CPT/HCPCS: 36415; 80053; 80143; 80179; 82077; 83690; 83735; 84443; 85025; 99283; 99284; A9270; Q0162

== ENCOUNTER 2024-04-07 14:20 | Outpatient (CLI) | payer SELFPAY | END 2024-04-07 23:59 | disposition home or self-care (01) | LOC: EMS 14:20 | DX: R11.0 Nausea (principal); R53.83 Other fatigue; R10.9 Unspecified abdominal pain | CPT/HCPCS: A0425; A0427 ==

== ENCOUNTER 2024-04-07 14:42 | Emergency (ER) | payer SELFPAY ==
--- NOTE | 2024-04-07 14:48 | ED Physician Documentation ---
History of Present Illness - Stated complaint Stated Complaint: NAUSEA - History obtained from History obtained from: Patient (via [employer] molded candles wicker tablet) - Additonal information Additional information: Stopped Etoh suddenly ~5 days ago. now 44yo male BIBA for 4 days nausea with some vomiting, diffuse abd pain and small diarrhea. Feels shaky and numb all over. PD PAST MEDICAL HISTORY - Past Medical History Cardiovascular: None Respiratory: None Neuro: None Endocrine/Autoimmune: Type 2 diabetes GI: Other : None HEENT: None Psych: Depression, Anxiety Musculoskeletal: None Derm: None - Past Surgical History Past Surgical History: Yes General: Other - Present Medications Home Medications: Ambulatory Orders Medication Instructions Recorded Confirmed chlordiazePOXIDE [Librium] 25 mg PO Q6H #15 cap 12/30/23 chlordiazePOXIDE [Librium] 25 mg PO Q6H #15 cap 01/13/24 Ondansetron Odt [Zofran Odt] 4 mg TL Q6H PRN #10 tablet 03/10/24 - Allergies Allergies/Adverse Reactions: Allergies Allergy/AdvReac Type Severity Reaction Status Date / Time aspirin [From [place]] Allergy Rash Verified 04/07/24 15:06 citric acid Allergy Rash Verified 04/07/24 15:06 [From [place]] sodium bicarbonate Allergy Rash Verified 04/07/24 15:06 [From [place]] - Social History Does the pt smoke?: Yes Smoking Status: Current every day smoker Does the pt drink ETOH?: Yes Does the pt have substance abuse?: Yes - POLST Patient has POLST: No PD ED PE NORMAL - Vitals Vital signs reviewed: Yes - General General: Alert and oriented X 3, No acute distress - Cardiac Cardiac: RRR, No murmur - Respiratory Respiratory: No respiratory distress, Clear bilaterally - Abdomen Abdomen: Soft, Non tender - Neuro Neuro: Alert and oriented X 3 Results - Vitals Vitals: Vital Signs - 24 hr 04/07/24 04/07/24 04/07/24 15:06 15:41 17:57 Temperature 36.8 C Heart Rate 78 82 87 Respiratory 18 16 Rate Blood Pressure 122/67 139/79 H 131/78 H O2 Saturation 99 98 94 04/07/24 20:00 Temperature Heart Rate 97 Respiratory 16 Rate Blood Pressure 134/78 H O2 Saturation 98 Oxygen O2 Source Room air - Labs Labs: Laboratory Tests 04/07/24 04/07/24 04/07/24 15:06 15:06 15:06 WBC 5.6 RBC 4.36 L Hgb 10.2 L Hct 34.3 L MCV 78.7 L MCH 23.4 L MCHC 29.7 L RDW 22.1 H Plt Count 576 H MPV 9.7 Neut # (Auto) 3.0 Lymph # (Auto) 2.2 [place] # (Auto) 0.2 Eos # (Auto) 0.0 Baso # (Auto) 0.2 H Absolute Nucleated RBC 0.00 Nucleated RBC % 0.0 PT INR VBG pH 7.388 VBG pCO2 39.1 L VBG pO2 63.8 H VBG HCO3 23.0 VBG Total CO2 24.2 VBG O2 Saturation 88.1 H VBG Base Excess -1.7 Sodium 143 Potassium 3.5 Chloride 105 Carbon Dioxide 22 Anion Gap 16.0 H BUN 6 Creatinine 0.5 L Estimated GFR (MDRD) 179 Glucose 95 Calcium 8.7 Magnesium 1.7 Total Bilirubin 0.6 AST 136 H ALT 99 H Alkaline Phosphatase 120 Total Protein 8.3 Albumin 4.5 Globulin 3.8 Albumin/Globulin Ratio 1.2 Lipase 37 Urine Opiates Screen Ur Buprenorphine Scrn Ur Oxycodone Screen Urine Methadone Screen Ur Barbiturates Screen Ur Tricyclics Screen Ur Phencyclidine Scrn Ur Amphetamine Screen U Methamphetamines Scrn U Benzodiazepines Scrn Urine Cocaine Screen U Cannabinoids Screen Ur Drug Screen Comment Ethyl Alcohol 385.3 Serum Ketones NEGATIVE 04/07/24 04/07/24 15:06 18:00 WBC RBC Hgb Hct MCV MCH MCHC RDW Plt Count MPV Neut # (Auto) Lymph # (Auto) [place] # (Auto) Eos # (Auto) Baso # (Auto) Absolute Nucleated RBC Nucleated RBC % PT 13.3 H INR 1.2 VBG pH VBG pCO2 VBG pO2 VBG HCO3 VBG Total CO2 VBG O2 Saturation VBG Base Excess Sodium Potassium Chloride Carbon Dioxide Anion Gap BUN Creatinine Estimated GFR (MDRD) Glucose Calcium Magnesium Total Bilirubin AST ALT Alkaline Phosphatase Total Protein Albumin Globulin Albumin/Globulin Ratio Lipase Urine Opiates Screen NEGATIVE Ur Buprenorphine Scrn NEGATIVE Ur Oxycodone Screen NEGATIVE Urine Methadone Screen NEGATIVE Ur Barbiturates Screen NEGATIVE Ur Tricyclics Screen NEGATIVE Ur Phencyclidine Scrn NEGATIVE Ur Amphetamine Screen NEGATIVE U Methamphetamines Scrn NEGATIVE U Benzodiazepines Scrn POSITIVE H Urine Cocaine Screen NEGATIVE U Cannabinoids Screen NEGATIVE Ur Drug Screen Comment CUTOFF CONC BELOW: Ethyl Alcohol Serum Ketones PD Medical Decision Making - ED course ED course: Subsequently his blood alcohol came back at 385. The rest of his labs were notable for modest microcytic anemia which is chronic looking at old labs, normal INR, normal blood gas, mild elevation in liver enzymes. I asked him again when he last drank and he admits to drinking this morning. Unfortunately do not have social work today but he is agreeable to inpatient detox. The health community affairs manager here tells me that he could self presents once his blood alcohol is below about 285 which would be in 4 hours. He received IV fluids, some Zofran and thiamine. Resting comfortably in the emergency department for a time. He was observed for several hours until clinical sobriety. We were unable to get him into [facility] as they do not have an molded candles wicker night but said they he could call in the morning. Departure - Departure Disposition: 01 Home, Self Care Clinical Impression: Alcoholism Alcohol intoxication Qualifiers: Complication of substance-induced condition: uncomplicated Qualified Code(s): F10.920 - Alcohol use, unspecified with intoxication, uncomplicated Condition: Stable Record reviewed to determine appropriate education?: Yes Instructions: ED Alcohol Intoxication Comments: We think you would benefit from admission for detoxification and/or rehabilitation from alcohol and/or drugs. The closest facility that does this is in [place]. It is: [facility] [address] [address] Call them at [phone] to arrange an intake appointment. Creemos que le beneficiara la admisin para desintoxicacin y/o rehabilitacin del alcohol y/o las drogas. El centro [facility] que ofrece mary servicio se encuentra en [place]. Es: [facility] [address] [place] [id number] [place] [phone] para concertar jamin kathi de admisin.
[2024-04-07 15:14] LABS: BASOPHILS # (AUTO) 0.2 10^3/uL (0.0-0.1); BASOPHILS % (AUTO) 3.4 %; EOSINOPHILS % (AUTO) 0.7 %; HCT - HEMATOCRIT 34.3 % (42.0-52.0); HGB - HEMOGLOBIN 10.2 g/dL (14.0-18.0); LYMPHOCYTES # (AUTO) 2.2 10^3/uL (1.5-3.5); LYMPHOCYTES % (AUTO) 39.3 %; MEAN CORPUSCULAR HEMOGLOBIN 23.4 pg (27.0-31.0); MEAN CORPUSCULAR HGB CONC 29.7 g/dL (32.0-36.0); MEAN CORPUSCULAR VOLUME 78.7 fL (80.0-94.0); MEAN PLATELET VOLUME 9.7 fL (7.4-11.4); MONOCYTES # (AUTO) 0.2 10^3/uL (0.0-1.0); MONOCYTES % (AUTO) 3.6 %; NEUTROPHILS % (AUTO) 52.5 %; PLT - PLATELET COUNT 576 10^3/uL (130-450); RED BLOOD COUNT 4.36 10^6/uL (4.70-6.10); RED CELL DISTRIBUTION WIDTH 22.1 % (12.0-15.0); WHITE BLOOD COUNT 5.6 x10^3/uL (4.8-10.8)
[2024-04-07 15:18] LABS: VBG BASE EXCESS -1.7 mmol/L (-2 - +2); VBG PCO2 39.1 mmHg (41-51); VBG PH 7.388 (7.31-7.41); VBG PO2 63.8 mmHg (25-47); VBG TOTAL CO2 24.2 mmol/L (24-29)
[2024-04-07 15:19] LABS: VBG OXYGEN SATURATION 88.1 % (60-80)
[2024-04-07 15:20] LABS: MAGNESIUM 1.7 mg/dL (1.7-2.3)
[2024-04-07] MEDS: SODIUM CHLORIDE 0.9% 1,000 ML IV STA (15:24)
[2024-04-07 15:25] LABS: INR 1.2 (0.8-1.2); PT - PROTHROMBIN TIME 13.3 secs (9.9-12.6)
[2024-04-07 15:26] LABS: ETOH - ETHANOL 385.3 mg/dL; LIPASE 37 U/L (11-82)
[2024-04-07] MEDS ORDERED: THIAMINE 100 MG/1 ML 2 ML MDV ONE (15:26)
[2024-04-07 15:27] LABS: ALBUMIN 4.5 g/dL (3.2-5.5); ALBUMIN/GLOBULIN RATIO 1.2 (1.0-2.2); ALKALINE PHOSPHATASE 120 IU/L (42-121); ALT ALANINE AMINOTRANSFERASE 99 IU/L (10-60); AST ASPARTATE AMINOTRANSFERASE 136 IU/L (10-42); BILIRUBIN,TOTAL 0.6 mg/dL (0.2-1.0); BUN - BLOOD UREA NITROGEN 6 mg/dL (6-20); CALCIUM 8.7 mg/dL (8.5-10.3); CARBON DIOXIDE - CO2 22 mmol/L (21-32); CHLORIDE 105 mmol/L (101-111); CREATININE 0.5 mg/dL (0.6-1.3); GFR - MDRD 179 (>89); GLUCOSE 95 mg/dL (74-104); POTASSIUM 3.5 mmol/L (3.5-4.5); SODIUM 143 mmol/L (135-145); TOTAL PROTEIN 8.3 g/dL (6.4-8.9)
[2024-04-07] MEDS: THIAMINE INJ 100 MG in SODIUM CHLORIDE 0.9% 50 ML IV STA (15:31)
[2024-04-07] MEDS: ONDANSETRON 4 MG/2 ML VIAL IVP STA (15:31)
[2024-04-07 15:34] LABS: KETONES, SERUM (ACETEST) NEGATIVE (NEGATIVE)
[2024-04-07 18:35] LABS: AMPHETAMINE SCREEN,URINE NEGATIVE (NEGATIVE); BARBITURATE SCREEN,UR NEGATIVE (NEGATIVE); BENZODIAZEPINES SCREEN, URINE POSITIVE (NEGATIVE); BUPRENORPHINE SCREEN, URINE NEGATIVE (NEGATIVE); COCAINE SCREEN URINE NEGATIVE (NEGATIVE); METHADONE SCREEN, URINE NEGATIVE (NEGATIVE); METHAMPHETAMINES SCREEN, URINE NEGATIVE (NEGATIVE); OPIATE SCREEN, URINE NEGATIVE (NEGATIVE); OXYCODONE SCREEN, URINE NEGATIVE (NEGATIVE); THC CANNABINOID SCREEN, URINE NEGATIVE (NEGATIVE); TRICYCLIC ANTIDEPRESSANT,URINE NEGATIVE (NEGATIVE)
[2024-04-07] MEDS: PANTOPRAZOLE 40 MG VIAL IVP STA (20:24)
[2024-04-07] MEDS: METOCLOPRAMIDE 10 MG/2 ML VIAL IVP STA (20:24)
[2024-04-07 20:49] VITALS: O2SAT 98
[2024-04-07 21:19] VITALS: BP 133/68
== END 2024-04-07 21:10 | disposition home or self-care (01) ==
LOC: EDUNIT# → EDBD → ED 14:42
DX: F10.120 Alcohol abuse with intoxication, uncomplicated (principal); Y90.8 Blood alcohol level of 240 mg/100 ml or more; R11.2 Nausea with vomiting, unspecified; R19.7 Diarrhea, unspecified
CPT/HCPCS: 36415; 80053; 80306; 82009; 82077; 82803; 83690; 83735; 85025; 85610; 96365; 96375; 99284; J2765; J3411; J7040